=== PATIENT | female | born 1980 | race Caucasian/White ===

== ENCOUNTER 2020-03-21 15:07 | Outpatient (REF) | payer OTHER, SELFPAY ==
--- NOTE | 2020-03-21 | US_ITS ---
EXAMINATION: ULTRASOUND LOWER EXTREMITY NONVASCULAR CLINICAL INFORMATION: Right groin COMPARISON: None TECHNIQUE: Grayscale and color imaging of the right inguinal region using a linear transducer FINDINGS: There is a right inguinal lymph node that corresponds to palpable abnormality. This measures 2 x 3.2 x 0.7 cm in sagittal transverse and AP dimension and is borderline enlarged. This has normal ultrasound morphology and flow. No hernia is seen. IMPRESSION: Palpable abnormality corresponds to a right inguinal lymph node. No hernia is seen.
== END 2020-03-21 15:08 | disposition home or self-care (01) ==
LOC: HO.US 15:07
PROVIDERS: PCP Physician Assistant; Visit Provider Advanced Practice Midwife
DX: R19.03 Right lower quadrant abdominal swelling, mass and lump (principal)
CPT/HCPCS: 76882

== ENCOUNTER → 2020-04-18 10:22 | Outpatient (BNVA) | payer OTHER, SELFPAY | PROVIDERS: PCP Physician Assistant; Visit Provider Surgery | DX: Z76.89 Persons encountering health services in other specified circumstances (principal) ==

== ENCOUNTER 2021-03-11 14:50 | Outpatient (REF) | payer OTHER, SELFPAY ==
--- NOTE | ~2021-03-11 | MM_ITS ---
EXAMINATION: MM SCREENING DIGITAL BREAST TOMOSYNTHESIS, BILATERAL CLINICAL INFORMATION: Screening. Asymptomatic. The lifetime risk of breast cancer based on the Tyrer-Cuzick Model is 21.7%. Additional annual screening with breast MRI may be of benefit in women with a Score of 20% or greater. COMPARISON: Mammography: 06/06/2019 and studies dating back to 12/09/2016 TECHNIQUE: Digital breast tomosynthesis is performed in both the craniocaudal and mediolateral oblique views along with computer-aided detection (CAD). Synthesized 2-D images are generated from the tomosynthesis. FINDINGS: The breasts are heterogeneously dense, which may obscure small masses (ACR BI-RADS breast composition Category c). Bilateral axillary lymph nodes are seen to contain calcification likely related to tattoo pigment. No suspicious left breast mass density is identified. No suspicious left breast calcifications. About the upper outer aspect of the right breast, there is a cluster of rounded densities likely representing cysts approximately 7 cm from the nipple. There is also noted to be a circumscribed approximately 1 cm in diameter density approximately 5 cm from the nipple. Spot compression view and ultrasound is recommended for further evaluation. MM/MM tomosynthesis screening BI IMPRESSION: Right breast densities upper outer quadrant for which spot compression views and ultrasound are recommended. ASSESSMENT: BI-RADS 0: Incomplete - Need Additional Imaging Evaluation. RECOMMENDATION: 1. Additional views of the right breast. 2. Targeted ultrasound if warranted after review of the additional views. 3. Radiology department staff will contact the patient for additional imaging. This patient's information was entered into a reminder system with a target due date for their next mammogram.
== END 2021-03-11 14:51 | disposition home or self-care (01) ==
LOC: HO.MAMMO 14:50
PROVIDERS: PCP Physician Assistant; Visit Provider Physician Assistant
DX: Z12.31 Encounter for screening mammogram for malignant neoplasm of breast (principal)
CPT/HCPCS: 77063; 77067

== ENCOUNTER 2021-03-19 14:20 | Outpatient (REF) | payer OTHER, SELFPAY ==
--- NOTE | ~2021-03-19 | MM_ITS ---
EXAMINATION: MM DIAGNOSTIC DIGITAL BREAST TOMOSYNTHESIS, RIGHT US DIAGNOSTIC ULTRASOUND BREAST, RIGHT CLINICAL INFORMATION: Recall from screening for subtle nodular asymmetric densities upper outer right breast. Family history breast cancer, mother. TC score 22%. COMPARISON: Mammography: 03/11/2021, 06/06/2019 TECHNIQUE: Digital breast tomosynthesis is performed. 2D images are generated from the tomosynthesis. The following views are obtained: Spot CC x2, spot MLO Ultrasound right breast is targeted to the outer quadrants using grayscale imaging and color Doppler without and with harmonics. FINDINGS: The breasts are heterogeneously dense, which may obscure small masses (ACR BI-RADS breast composition Category c). The additional views confirm smooth oval mass mid 9:30 position approximately 1.2 cm in length with partly obscured margins. There is a smaller adjacent bilobed nodule with smooth partially obscured margins slightly more posterior at 9:00. There is no architectural abnormality. Ultrasound demonstrates oval simple cyst 10:00 position approximately 4 cm from nipple measuring 1.3 x 0.6 x 0.9 cm. The cyst is anechoic with circumscribed margins and increased through-transmission of sound. No associated color flow. There is a bilobed satellite cyst consistent with the mammography approximately 2.3 cm more posterior with overall dimensions 0.8 x 0.5 x 0.6 cm. There is no solid mass or architectural abnormality or focal duct ectasia. Results are discussed with the patient at time of visit. MM/MM tomosynthesis added views R IMPRESSION: Incidental simple cysts mid outer right breast corresponding to finding on recent mammography. ASSESSMENT: BI-RADS 2: Benign RECOMMENDATION: 1. Routine annual mammography screening. 2. The lifetime risk of breast cancer based on the Tyrer-Cuzick Model is 22%. Additional annual adjunct screening with breast MRI may be of benefit in women with a risk score of 20% or greater. This patient's information was entered into a reminder system with a target due date for their next mammogram.
== END 2021-03-19 14:21 | disposition home or self-care (01) ==
LOC: HO.MAMMO 14:20
PROVIDERS: Visit Provider Physician Assistant
DX: R92.2 Inconclusive mammogram (principal); Z80.3 Family history of malignant neoplasm of breast
CPT/HCPCS: 76642; 77061; 77065

== ENCOUNTER 2021-06-11 16:23 | Outpatient (REF) | payer OTHER, SELFPAY ==
[2021-06-11 17:06] LABS: COVID-19 Test Negative (Negative)
== END 2021-06-11 16:24 | disposition home or self-care (01) ==
LOC: HO.LAB 16:23
PROVIDERS: PCP Physician Assistant; Visit Provider Internal Medicine
DX: Z20.822 Contact with and (suspected) exposure to COVID-19 (principal)
CPT/HCPCS: 36415; 87635

== ENCOUNTER 2021-06-17 14:03 | Outpatient (REF) | payer OTHER, SELFPAY | END 2021-06-17 14:04 | disposition home or self-care (01) | LOC: HO.LNP 14:03 | PROVIDERS: Visit Provider Hospitalist | DX: Z20.822 Contact with and (suspected) exposure to COVID-19 (principal) | CPT/HCPCS: U0003; U0005 ==

== ENCOUNTER 2021-12-08 16:16 | Outpatient (REF) | payer OTHER, SELFPAY ==
--- NOTE | ~2021-12-08 | US_ITS ---
EXAMINATION: US ABDOMEN COMPLETE CLINICAL INFORMATION: Upper abdominal pain, unspecified. COMPARISON: None TECHNIQUE: Real-time imaging of the abdominal viscera. FINDINGS: PANCREAS: Normal. ABDOMINAL AORTA: The proximal, mid, and distal segments are normal in caliber. INFERIOR VENA CAVA: Visualized portions are normal. LIVER: Normal. The liver is normal in size. The liver contour is normal. Parenchymal echogenicity is normal. No focal hepatic lesion. There is no intrahepatic biliary duct dilatation seen. GALLBLADDER: Normal. The gallbladder is physiologically distended without evidence of stones, sludge, polyps, wall thickening or pericholecystic fluid. COMMON BILE DUCT: Normal in caliber measuring 0.2 cm in diameter. RIGHT KIDNEY: Normal. No hydronephrosis. No renal calculi or focal parenchymal lesions. The kidney measures 10.5 cm in maximum dimension. LEFT KIDNEY: There is a 1.2 x 0.8 x 1.6 cm simple cyst in the lower pole. No hydronephrosis or renal calculi. The kidney measures 10.7 cm in maximum dimension. SPLEEN: Normal. The spleen measures 8.2 cm in maximum dimension. FREE FLUID: None. US/US abdomen complete IMPRESSION: Small left renal cyst otherwise unremarkable exam.
== END 2021-12-08 16:17 | disposition home or self-care (01) ==
LOC: HO.US 16:16
PROVIDERS: PCP Internal Medicine; Visit Provider Internal Medicine
DX: R10.10 Upper abdominal pain, unspecified (principal)
CPT/HCPCS: 76700

== ENCOUNTER 2022-01-27 12:34 | Outpatient (REF) | payer OTHER, SELFPAY ==
--- NOTE | ~2022-01-27 | XR_ITS ---
EXAMINATION: XR THORACOLUMBAR SPINE CLINICAL INFORMATION: Upper abdominal pain. Back pain COMPARISON: None TECHNIQUE: 2 views. FINDINGS: The vertebral alignment is normal. No intrinsic bony abnormality. The disc heights and neural foramina are well maintained. The endplates and posterior elements are normal. No fracture or subluxation. The surrounding prevertebral soft tissues are unremarkable. XR/XR thoracic spine 2V IMPRESSION: No compression fractures or subluxations are identified. The disc spaces are preserved. No endplate changes are seen. The prevertebral soft tissues are normal. The foramina are patent.
[2022-01-27 13:59] LABS: Appearance Urine HAZY; Color Urine YELLOW; Glucose Urine UA NEG (NEG); Leukocyte Esterase Urine NEG (NEG); Nitrite Urine NEG (NEG); Specific Gravity - Urine 1.025 (1.005-1.025); Urine Blood NEG (NEG); Urine Ketones NEG (NEG); Urine Protein NEG (NEG-TRACE)
[2022-01-27 14:13] LABS: Amylase 54 U/L (28-100); C Reactive Protein 0.14 mg/dL (< or = 0.50); Lipase 52 U/L (8-78)
[2022-01-29 13:08] LABS: Transglutaminase Ab IgG <1.0 U/mL; Transglutaminase IgA <1.0 U/mL
== END 2022-01-27 12:35 | disposition home or self-care (01) ==
LOC: HO.10HDL 12:34
PROVIDERS: Visit Provider Nurse Practitioner
DX: R10.10 Upper abdominal pain, unspecified (principal); K58.0 Irritable bowel syndrome with diarrhea; M54.9 Dorsalgia, unspecified
CPT/HCPCS: 36415; 72070; 81003; 82150; 83690; 86003; 86140; 86364

== ENCOUNTER 2022-03-12 16:21 | Outpatient (REF) | payer OTHER, SELFPAY ==
--- NOTE | ~2022-03-12 | MM_ITS ---
EXAMINATION: MM SCREENING DIGITAL BREAST TOMOSYNTHESIS, BILATERAL CLINICAL INFORMATION: Screening. Asymptomatic. Family history breast cancer, mother. Left axillary node biopsy 2018 (tattoo pigment). The lifetime risk of breast cancer based on the Tyrer-Cuzick Model is 30%. COMPARISON: Mammography: 03/19/2021, 03/11/2021, 06/06/2019; right breast ultrasound 03/19/2021. TECHNIQUE: Digital breast tomosynthesis is performed in both the craniocaudal and mediolateral oblique views along with computer-aided detection (CAD). Synthesized 2D images are generated from the tomosynthesis. FINDINGS: There are scattered areas of fibroglandular density (ACR BI-RADS breast composition Category b). There are no significant masses, abnormal calcifications, or other abnormalities. Parenchymal pattern is similar to prior studies. There is no developing density or architectural abnormality. The skin contours are unremarkable. The axilla are stable. Punctate high attenuation holden densities likely related tattoo pigment. Biopsy clip marker left axilla. No significant changes. MM/MM tomosynthesis screening BI IMPRESSION: No mammographic evidence of malignancy. ASSESSMENT: BI-RADS 2: Benign RECOMMENDATION: Routine annual mammography screening. This patient's information was entered into a reminder system with a target due date for their next mammogram.
== END 2022-03-12 16:22 | disposition home or self-care (01) ==
LOC: HO.MAMMO 16:21
PROVIDERS: PCP Physician Assistant; Visit Provider Physician Assistant
DX: Z12.31 Encounter for screening mammogram for malignant neoplasm of breast (principal)
CPT/HCPCS: 77063; 77067

== ENCOUNTER 2022-06-18 07:58 | Outpatient (REF) | payer OTHER, SELFPAY ==
[2022-06-19 12:09] LABS: BV Int Neg Control Negative (Negative); BV Int Pos Control Positive (Positive)
[2022-06-20 03:04] LABS: HPV mRNA E6/E7 rflx Not Detected (Not Detected)
== END 2022-06-18 07:59 | disposition home or self-care (01) ==
LOC: HO.LNP 07:58
PROVIDERS: PCP Physician Assistant; Visit Provider Advanced Practice Midwife
DX: Z01.419 Encounter for gynecological examination (general) (routine) without abnormal findings (principal); N92.0 Excessive and frequent menstruation with regular cycle; F17.210 Nicotine dependence, cigarettes, uncomplicated
CPT/HCPCS: 87480; 87510; 87624; 87660; 88142

== ENCOUNTER 2022-06-18 09:07 | Outpatient (REF) | payer OTHER, SELFPAY ==
[2022-06-18 10:31] LABS: Hematocrit 39.2 % (37.0-47.0); Hemoglobin 13.1 g/dl (12.0-16.0); Mean Corpuscular HGB Conc 33.4 g/dl (31.0-35.0); Mean Corpuscular Hemoglobin 32.5 pg (27.0-33.0); Mean Corpuscular Volume 97.3 fL (80.0-98.0); Mean Platelet Volume 9.5 fL (9.4-12.3); Platelet Count 324 X10*3/uL (160-400); Red Blood Count 4.03 X10*6/uL (4.20-5.50); Red Cell Distribution Width 12.7 % (11.0-16.0); White Blood Count 4.4 X10*3/uL (4.8-10.8)
[2022-06-18 10:41] LABS: Alanine Aminotransferase 28 U/L (0-31); Albumin Level 4.4 g/dL (3.5-5.0); Alkaline Phosphatase 49 U/L (39-117); Anion Gap 11 (12-20); Aspartate Amino Transferase 30 U/L (5-31); Bilirubin Total 0.4 mg/dL (0.0-1.0); Blood Urea Nitrogen 12 mg/dL (9-16); Calcium 9.8 mg/dL (8.4-10.2); Carbon Dioxide 28 mmol/L (22-29); Chloride 103 mmol/L (96-108); Cholesterol 188 mg/dL; Estimated Glomerular Filt Rate > 60; Glucose Fasting 82 mg/dL (60-99); HDL Cholesterol 57 mg/dL; LDL Cholesterol Calculated 106 mg/dl; Potassium 4.8 mmol/L (3.3-5.1); Sodium 137 mmol/L (135-145); Total Protein 7.2 g/dL (6.5-8.0); Triglycerides 125 mg/dL
[2022-06-18 11:02] LABS: Creatinine Urine 100.22 mg/dL; Microalbum/Creatinine Ratio Ur 6.9 ug/mg cr
[2022-06-18 11:15] LABS: TSH reflex Free T4 0.75 uIU/mL (0.32-4.0); Uric Acid 4.5 mg/dL (2.4-5.7)
[2022-06-18 12:10] LABS: CT PCR NOT DETECTED (Not Detect.); NG PCR NOT DETECTED (Not Detect.)
== END 2022-06-18 09:08 | disposition home or self-care (01) ==
LOC: HO.10HDL 09:07
PROVIDERS: Advanced Practice Midwife; Nurse Practitioner; Visit Provider Physician Assistant
DX: N92.0 Excessive and frequent menstruation with regular cycle (principal); I10 Essential (primary) hypertension; Z11.3 Encounter for screening for infections with a predominantly sexual mode of transmission
CPT/HCPCS: 36415; 80053; 80061; 82043; 84443; 84550; 85027; 87491; 87591

== ENCOUNTER → 2022-06-30 08:02 | Outpatient (BNVA) | payer OTHER, SELFPAY | PROVIDERS: PCP Physician Assistant; Referring Provider Physician Assistant; Visit Provider Nurse Practitioner | DX: Z13.89 Encounter for screening for other disorder (principal) ==

== ENCOUNTER 2022-07-06 16:17 | Outpatient (REF) | payer OTHER, SELFPAY ==
--- NOTE | ~2022-07-06 | US_ITS ---
EXAMINATION: US PELVIS CLINICAL INFORMATION: Excessive and frequent menstruation. 42-year-old, LMP 06/18/2022 COMPARISON: 12/10/2016 TECHNIQUE: Ultrasound of the pelvis is performed using both transabdominal and transvaginal transducers along with Doppler. Transvaginal imaging is performed due to inadequate visualization transabdominally. FINDINGS: Uterus: The uterus is anteverted and measures 2.8 x 3.0 x 1.5 cm. The double wall endometrial thickness is 1.1 mm. The uterus is smooth in contour and has normal myometrial echogenicity. No visible fibroid. Adnexa: Both ovaries are visualized. There is normal color flow to the adnexa. There is no ovarian torsion. There is no pelvic ascites or fluid collection. Right ovary measures 2.8 x 3.0 x 1.5 cm. Left ovary measures 3.0 x 2.0 x 1.4 cm. US/US pelvic and transvaginal IMPRESSION: Unremarkable pelvic ultrasound.
== END 2022-07-06 16:18 | disposition home or self-care (01) ==
LOC: HO.US 16:17
PROVIDERS: PCP Physician Assistant; Visit Provider Advanced Practice Midwife
DX: N92.0 Excessive and frequent menstruation with regular cycle (principal)
CPT/HCPCS: 76830; 76856

== ENCOUNTER → 2022-07-20 11:43 | Outpatient (BNVA) | payer OTHER, SELFPAY | PROVIDERS: PCP Physician Assistant; Visit Provider Advanced Practice Midwife | DX: Z13.89 Encounter for screening for other disorder (principal) ==

== ENCOUNTER → 2022-09-29 07:42 | Outpatient (BNVA) | payer OTHER, SELFPAY | PROVIDERS: PCP Physician Assistant; Referring Provider Physician Assistant; Visit Provider Nurse Practitioner | DX: Z13.89 Encounter for screening for other disorder (principal) ==

== ENCOUNTER 2022-12-16 16:24 | Outpatient (REF) | payer OTHER, SELFPAY ==
--- NOTE | ~2022-12-16 | XR_ITS ---
EXAMINATION: XR FOOT, RIGHT CLINICAL INFORMATION: Pain. COMPARISON: Radiographs dated 12/11/2019. TECHNIQUE: AP, lateral, and oblique views of the right foot. FINDINGS: Bony alignment and mineralization are normal. No fracture, dislocation or right ankle joint effusion is seen. Boehler's angle is normal. There are moderate posterior and large plantar calcaneal spurs. No unusual bone erosion is noted. There is no focal soft tissue swelling, gas or foreign body. XR/XR foot RT min 3V IMPRESSION: 1. No fracture, dislocation or right ankle joint effusion is seen. 2. There are right calcaneal spurs, as detailed. EXAMINATION: XR FOOT, LEFT CLINICAL INFORMATION: Pain. COMPARISON: None available. TECHNIQUE: AP, lateral, and oblique views of the left foot. FINDINGS: Bony alignment and mineralization are normal. No fracture, dislocation or left ankle joint effusion is seen. Boehler's angle is normal. There is a small plantar calcaneal spur. No unusual bony erosive change is seen. There is no focal soft tissue swelling, gas or foreign body. IMPRESSION: 1. No fracture, dislocation or left ankle joint effusion is seen. 2. There is a small plantar calcaneal spur.
--- NOTE | ~2022-12-16 | XR_ITS ---
EXAMINATION: XR FOOT, RIGHT CLINICAL INFORMATION: Pain. COMPARISON: Radiographs dated 12/11/2019. TECHNIQUE: AP, lateral, and oblique views of the right foot. FINDINGS: Bony alignment and mineralization are normal. No fracture, dislocation or right ankle joint effusion is seen. Boehler's angle is normal. There are moderate posterior and large plantar calcaneal spurs. No unusual bone erosion is noted. There is no focal soft tissue swelling, gas or foreign body. XR/XR foot LT min 3V IMPRESSION: 1. No fracture, dislocation or right ankle joint effusion is seen. 2. There are right calcaneal spurs, as detailed. EXAMINATION: XR FOOT, LEFT CLINICAL INFORMATION: Pain. COMPARISON: None available. TECHNIQUE: AP, lateral, and oblique views of the left foot. FINDINGS: Bony alignment and mineralization are normal. No fracture, dislocation or left ankle joint effusion is seen. Boehler's angle is normal. There is a small plantar calcaneal spur. No unusual bony erosive change is seen. There is no focal soft tissue swelling, gas or foreign body. IMPRESSION: 1. No fracture, dislocation or left ankle joint effusion is seen. 2. There is a small plantar calcaneal spur.
== END 2022-12-16 16:25 | disposition home or self-care (01) ==
LOC: HO.XRAY 16:24
PROVIDERS: PCP Physician Assistant; Visit Provider Podiatrist
DX: M79.672 Pain in left foot (principal); M79.671 Pain in right foot
CPT/HCPCS: 73630

== ENCOUNTER 2023-03-02 13:24 | Outpatient (AMB) | payer OTHER, SELFPAY ==
--- NOTE | 2023-03-02 13:26 | A.OFFVIS_ITS ---
Intake Vital Signs 03/02/23 13:31 Height 5 ft 2 in Weight 160 lb BMI 29.3 Intake Visit Reasons: New Prob - Bilateral Knee Pain Intake Note: Kizzy a 42 year old female who presents today for an evaluation of bilateral knee pains and giving way, left greater than right. The patient states that she 1st injured her left knee several years ago. She twisted her knee and had acute onset of pain. She did have cortisone injections at that time which gave her minimal relief. She has done physical therapy for 12 weeks over the last 6 months which aggravated her pain. She has also tried Tylenol and anti- inflammatory medicines which gave her minimal relief. She states that her left knee will give out several times per day. Allergies cat dander Allergy (Verified 03/02/23 13:31) Unknown seasonal Allergy (Unknown, Uncoded 03/02/23 13:31) Unknown Medication List - Last Reconciled 03/02/23 by Don Deutsch MD cetirizine (Zyrtec) 10 mg PO DAILY citalopram 10 mg PO DAILY eluxadoline (Viberzi) 100 mg PO BID 90 days L.acid,gas,tasha,rham-B.ani-cran 5 billion cell- 250 mg (up4 Probiotics Women's) caps PO lisinopril 10 mg PO DAILY pantoprazole 20 mg PO DAILY [facility] Medical History Hypertension Surgical History History of laparoscopy Family History Mother History of leukemia History of basal cell carcinoma History of breast cancer, Onset Age: 58 Maternal Grandmother History of pancreatic cancer Maternal Grandmother History of breast cancer Father TIA (transient ischemic attack), Onset Age: 50 CAD (coronary artery disease) Social History Housing: House Alcohol intake: current Alcohol intake frequency: a few times a week Alcohol type: wine Patient Tobacco Use Status: Current someday Tobacco user Cigarettes Per Day: 5 e-Cigarette/Vaping Use: Never Used Second Hand Smoke Exposure: Yes service: No Current occupational status: employed 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[employer] Cognitive needs: No Hearing needs: No Vision needs: No Female Reproductive History Menstrual Age of Menarche: 11 Physical Exam Vital Signs: BMI result Body Mass Index 29.3 Const Other: Well-nourished well-developed very friendly female awake alert and oriented x3 in no acute distress Extrem Other: Bilateral lower extremity examination shows good capillary refill, no skin lesions noted, normal sensation light touch Bilateral knee examination shows minimal effusions, tenderness along her medial joint lines, positive Feroz's test, no instability Results Reviewed Results Reviewed: X-rays of the patient's bilateral knees taken today show minimal diffuse joint space narrowing, no acute bony abnormalities Assessment & Plan Assessment & Plan (1) Left knee pain: Code(s): M25.562 - Pain in left knee Plan: Ms. Roge Kraus presents with progressively worsening left knee pain and giving way most likely due to a tear of her medial meniscus. Thus, I will send her for an MRI of her left knee for further evaluation. I will see her back once the MRI is completed to discuss the findings and treatment options. The patient also has similar symptoms in her right knee. At this point her right knee symptoms are tolerable to her. Feel free to call me at any time should questions regarding her orthopedic management arise. I spent 22 minutes in reviewing the patient's records and imaging studies, seeing the patient and documenting in the medical record. (2) Right knee pain: Code(s): M25.561 - Pain in right knee Orders: Orders XR knee LT 3V Today M25.562 - Pain in left knee XR knee RT 3V Today M25.561 - Pain in right knee MR knee LT wo con Today S83.242A - Other tear of medial meniscus, current injury, left knee, initial encounter Coding Level of Care Code Est Pt Level 2 (81748) Diagnoses Left knee pain M25.562 Right knee pain M25.561
[2023-03-02 13:31] VITALS: BMI 29.3
== END 2023-03-02 13:52 | disposition home or self-care (01) ==
PROVIDERS: PCP Physician Assistant; Visit Provider Orthopaedic Surgery
DX: M25.562 Pain in left knee (principal); M25.561 Pain in right knee
CPT/HCPCS: 99212

== ENCOUNTER 2023-03-02 13:24 | Outpatient (REF) | payer OTHER, SELFPAY ==
--- NOTE | ~2023-03-02 | XR_ITS ---
STUDY: Bilateral knees INDICATION: Bilateral knee pain COMPARISON: None TECHNIQUE: 4 views each knee FINDINGS: Right: No fracture or dislocation. No significant joint space narrowings. Small suprapatellar effusion. Quadriceps enthesopathy. Left: Joint spaces are maintained. No fracture, dislocation or joint effusion. XR/XR knee RT 3V IMPRESSION: No acute bony pathology bilateral knees. Small right suprapatellar effusion.
--- NOTE | ~2023-03-02 | XR_ITS ---
STUDY: Bilateral knees INDICATION: Bilateral knee pain COMPARISON: None TECHNIQUE: 4 views each knee FINDINGS: Right: No fracture or dislocation. No significant joint space narrowings. Small suprapatellar effusion. Quadriceps enthesopathy. Left: Joint spaces are maintained. No fracture, dislocation or joint effusion. XR/XR knee LT 3V IMPRESSION: No acute bony pathology bilateral knees. Small right suprapatellar effusion.
== END 2023-03-02 13:25 | disposition home or self-care (01) ==
LOC: HO.HOSX 13:24
PROVIDERS: PCP Physician Assistant; Visit Provider Orthopaedic Surgery
DX: M25.561 Pain in right knee (principal); M25.562 Pain in left knee
CPT/HCPCS: 73562

== ENCOUNTER 2023-03-19 09:44 | Outpatient (REF) | payer OTHER, SELFPAY ==
--- NOTE | ~2023-03-19 | MR_ITS ---
EXAMINATION: MR KNEE WITHOUT CONTRAST, LEFT CLINICAL INFORMATION: Left knee pain. Evaluate for a meniscal tear. COMPARISON: Left knee radiographs dated 03/02/2023. TECHNIQUE: MRI of the knee without contrast was performed using routine sequences on a high-field scanner. FINDINGS: MENISCI: Medial Meniscus: Intact Lateral Meniscus: Intact LIGAMENTS: Cruciate: Intact Collateral: Mild edema along the periphery of the medial collateral ligament consistent with an acute grade 1 sprain. No measurable defect. Intact fibular collateral ligament. EXTENSOR MECHANISM: Superior patellar enthesophytes with mild distal quadriceps tendinosis. Intact patellar tendon. Normal patellofemoral alignment. ARTICULAR CARTILAGE/BONE: Patellofemoral Compartment: Inferior medial trochlea articular cartilage signal heterogeneity. Medial Compartment: Intact articular cartilage. Lateral Compartment: Intact articular cartilage. JOINT FLUID AND BURSAE: Trace joint effusion and trace Perez's cyst. MR/MR knee LT wo con IMPRESSION: Acute grade 1 sprain of the medial collateral ligament. No meniscal tear. Mild distal quadriceps tendinosis. Minimal patellofemoral arthrosis. Trace joint effusion and trace Perez's cyst.
== END 2023-03-19 09:45 | disposition home or self-care (01) ==
LOC: HO.MRI 09:44
PROVIDERS: PCP Physician Assistant; Visit Provider Orthopaedic Surgery
DX: S83.242A Other tear of medial meniscus, current injury, left knee, initial encounter (principal)
CPT/HCPCS: 73721

== ENCOUNTER → 2023-03-29 08:30 | Outpatient (BNV) | payer OTHER, SELFPAY | PROVIDERS: PCP Physician Assistant; Visit Provider Radiology Diagnostic Radiology | DX: Z12.31 Encounter for screening mammogram for malignant neoplasm of breast (principal) | CPT/HCPCS: 77063; 77067 ==

== ENCOUNTER 2023-03-29 08:35 | Outpatient (REF) | payer OTHER, SELFPAY | END 2023-03-29 08:36 | disposition home or self-care (01) | LOC: HO.MAMMO 08:35 | PROVIDERS: PCP Physician Assistant; Visit Provider Physician Assistant | DX: Z12.31 Encounter for screening mammogram for malignant neoplasm of breast (principal) | CPT/HCPCS: 77063; 77067 ==

== ENCOUNTER 2023-03-31 08:03 | Outpatient (AMB) | payer OTHER, SELFPAY ==
--- NOTE | 2023-03-31 08:03 | MHC.OFFVIS ---
Intake Vital Signs 03/31/23 08:04 Height 5 ft 2 in Weight 150 lb BMI 27.4 Intake Visit Reasons: OV - Left Knee MRI Follow Up - Brace Intake Note: Kizzy is a 42 year old female who presents today for an MRI review of her bilateral knees. Kizzy reports bilateral knee pains and giving way, left greater than right. The patient states that she 1st injured her left knee several years ago. She twisted her knee and had acute onset of pain. She did have cortisone injections at that time which gave her minimal relief. She has done physical therapy for 12 weeks over the last 6 months which aggravated her pain. She has also tried Tylenol and anti-inflammatory medicines which gave her minimal relief. She states that her left knee will give out several times per day. She would like to avoid surgery if possible. He has not tried a knee brace. Allergies cat dander Allergy (Verified 03/31/23 08:05) Unknown seasonal Allergy (Unknown, Uncoded 03/31/23 08:05) Unknown [facility] Medical History Hypertension Surgical History History of laparoscopy Family History Mother History of leukemia History of basal cell carcinoma History of breast cancer, Onset Age: 58 Maternal Grandmother History of pancreatic cancer Maternal Grandmother History of breast cancer Father TIA (transient ischemic attack), Onset Age: 50 CAD (coronary artery disease) Social History Housing: House Alcohol intake: current Alcohol intake frequency: a few times a week Alcohol type: wine Patient Tobacco Use Status: Current someday Tobacco user Cigarettes Per Day: 5 e-Cigarette/Vaping Use: Never Used Second Hand Smoke Exposure: Yes service: No Current occupational status: employed 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[employer] Cognitive needs: No Hearing needs: No Vision needs: No Female Reproductive History Menstrual Age of Menarche: 11 Physical Exam Vital Signs: BMI result Body Mass Index 27.4 Const Other: Well-nourished well-developed very friendly female awake alert and oriented x3 in no acute distress Extrem Other: Bilateral lower extremity examination shows good capillary refill, no skin lesions noted, normal sensation light touch Left knee examination shows a minimal effusion, tenderness along her medial collateral ligament and medial joint line, negative Feroz's test, no instability Results Reviewed Results Reviewed: MRI of the patient's left knee shows minimal diffuse degenerative changes as well as a sprain of the medial collateral ligament Assessment & Plan Assessment & Plan (1) MCL sprain of left knee: Code(s): S83.412A - Sprain of medial collateral ligament of left knee, initial encounter Plan Ms. Guan presents with left knee pain and mechanical symptoms due to a medial collateral ligament sprain. I discussed with the patient the treatment options. The patient's symptoms will most likely improve over the next few months with non operative treatment. She was fitted with a Reaction knee brace to help with stability. I do feel that the knee brace is a medical necessity to help prevent further injury and falls. The patient will contact me prior to her follow-up appointment in 6 weeks should her symptoms worsen in any way. Feel free to call me at any time should questions regarding her orthopedic management arise. I spent 20 minutes in reviewing the patient's records and imaging studies, seeing the patient and documenting in the medical record. Coding Level of Care Code Est Pt Level 2 (11620) Diagnoses MCL sprain of left knee S83.412A
[2023-03-31 08:04] VITALS: BMI 27.4
== END 2023-03-31 08:07 | disposition home or self-care (01) ==
PROVIDERS: PCP Physician Assistant; Visit Provider Orthopaedic Surgery
DX: S83.412A Sprain of medial collateral ligament of left knee, initial encounter (principal)
CPT/HCPCS: 99212

== ENCOUNTER → 2023-03-31 08:03 | Outpatient (BNVA) | payer OTHER, SELFPAY | PROVIDERS: PCP Physician Assistant; Visit Provider Orthopaedic Surgery ==

== ENCOUNTER 2023-04-01 12:59 | Outpatient (AMB) | payer OTHER, SELFPAY ==
--- NOTE | 2023-04-01 13:00 | A.OFFVIS_ITS ---
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 VV are painful to the touch. Accompanied by: Self / Same As Patient Allergies cat dander Allergy (Verified 04/01/23 13:04) Unknown seasonal Allergy (Unknown, Uncoded 04/01/23 13:04) Unknown HPI CLIENT OPERATIONS MANAGER Varicose Veins HPI Details Very pleasant 43-year-old female patient presents for painful varicose veins. Complaints include pain over varicosities, swelling of lower extremities, cramping. 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 It is noted more so in left leg. Patient denies any previous venous surgery or injections. Patient denies any history of DVT/ PE. Patient denies any history of phlebitis. Trial of compression includes - [id number] They now present for vascular evaluation regarding their varicose veins. [facility] Medical History Hypertension Surgical History History of laparoscopy Family History Mother History of leukemia History of basal cell carcinoma History of breast cancer, Onset Age: 58 Maternal Grandmother History of pancreatic cancer Maternal Grandmother History of breast cancer Father TIA (transient ischemic attack), Onset Age: 50 CAD (coronary artery disease) Social History Housing: House Alcohol intake: current Alcohol intake frequency: a few times a week Alcohol type: wine Patient Tobacco Use Status: Current someday Tobacco user Cigarettes Per Day: 5 e-Cigarette/Vaping Use: Never Used Second Hand Smoke Exposure: Yes service: No Current occupational status: employed 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[employer] Cognitive needs: No Hearing needs: No Vision needs: No Female Reproductive History Menstrual Age of Menarche: 11 Review of Systems Const Reports as per HPI ENT Reports no additional complaints Card Denies chest pain, Denies chest pain at rest and Denies chest pain with activity Resp Denies chest congestion and Denies cough GI Reports no additional complaints Musc Details: pain over varicosities, aching of lower extremities, swelling, cramping, heaviness and tiredness, itching Denies abnormal gait Skin/Breast Reports pruritus and Denies wounds Neuro Reports no additional complaints and Denies abnormal gait Psych Denies no additional complaints Physical Exam Vital Signs: BMI result Body Mass Index 27.4 Const General: cooperative, healthy appearing and comfortable Orientation/consciousness: oriented to person, oriented to place and oriented to time Neck Carotids: no bruits Chest Chest palpation & inspection: normal inspection of the chest and normal palpation of entire chest wall Resp Effort & Inspection: normal respiratory effort and able to speak in complete sentences Cardio Rate: regular rate Heart sounds: S1 normal heart sound present and S2 normal heart sound present Peripheral pulses: Peripheral pulses 2+ throughout GI Inspection: Yes normal to inspection Skin Other: +2 edema, CEAP Classification C4 - skin color changes Ep - Etiology Primary As - superficial veins P - reflux General skin exam: dry skin Neuro General: oriented to person, oriented to place and oriented to time Extrem Right lower extremity: full ROM, normal capillary refill and edema Left lower extremity: full ROM, normal capillary refill and edema Psych Mental Status: mental status grossly normal Assessment & Plan Assessment & Plan (1) Varicose veins of left lower extremity with inflammation: Code(s): I83.12 - Varicose veins of left lower extremity with inflammation Plan: In short, the patient has evidence of venous insufficiency. I have discussed the pathophysiology with the patient. In addition I have provided informational material regarding venous disease to the patient. We have discussed conservative measures including compression, elevation, and exercise. I have also provided a handout regarding appropriate use of compression stockings and where to purchase good compression stockings as well. I have taken the liberty of ordering venous insufficiency testing with the patient. They will follow up with me after testing. The patient had an opportunity to ask questions regarding the treatment plan. All questions were answered. Imaging studies, laboratory studies and physical exam results were discussed and reviewed in detail. No major barriers to understanding were identified. The patient expressed understanding and agreement with the above treatment plan. The patient is aware they should contact our office by phone for worsening of the current condition or the appearance of new symptoms. Thank you for allowing me to participate in the vascular care of this patient. If you have any questions or concerns regarding the treatment for the above condition please do not hesitate to contact me. The office telephone contact is [phone]. This note is constructed using voice recognition software. While every effort has been made to ensure accuracy, supervisor decorating errors may have been included. Thank you for allowing me to participate in the care of your patient. Yours sincerely, Pancho Joiner MD, FACS, R.P.V.I. Coding Level of Care Code New Pt Level 4 (42817) Diagnoses Varicose veins of left lower extremity with inflammation I83.12
[2023-04-01 13:01] VITALS: BMI 27.4
== END 2023-04-01 13:23 | disposition home or self-care (01) ==
PROVIDERS: PCP Physician Assistant; Visit Provider Surgery Vascular Surgery
DX: I83.12 Varicose veins of left lower extremity with inflammation (principal)
CPT/HCPCS: 99203

== ENCOUNTER → 2023-04-01 12:59 | Outpatient (BNVA) | payer OTHER, SELFPAY | PROVIDERS: PCP Physician Assistant; Visit Provider Surgery Vascular Surgery ==

== ENCOUNTER 2023-04-15 08:23 | Outpatient (AMB) | payer OTHER, SELFPAY ==
[2023-04-15 08:36] VITALS: BP 114/72; PULSE 54; O2SAT 98; BMI 28.3
--- NOTE | 2023-04-15 08:36 | MHC.PC.OV ---
Vital Signs 04/15/23 08:36 Height 5 ft 2 in Weight 155 lb BMI 28.3 BP 114/72 Blood Pressure Location Lt brachial Position Sitting Pulse 54 Pulse Source Pulse Oximeter Pulse Oximetry (%) 98 Oxygen Delivery Method Room Air Intake Visit Reasons: PE Allergies cat dander Allergy (Verified 04/15/23 08:45) Unknown seasonal Allergy (Unknown, Uncoded 04/15/23 08:37) Unknown Medication List - Last Reconciled 04/15/23 by Yariel Rose PA-C cetirizine (Zyrtec) 10 mg PO DAILY citalopram 10 mg PO DAILY eluxadoline (Viberzi) 100 mg PO BID 90 days L.acid,gas,tasha,rham-B.ani-cran 5 billion cell- 250 mg (up4 Probiotics Women's) caps PO lisinopril 10 mg PO DAILY pantoprazole 20 mg PO DAILY Tobacco use date assessed: 04/15/23 Dental Screening Dental Screen Date: 04/15/23 Did you have a dental visit in the last 12 months?: Yes Did you have a dental problem in the last 6 months where you did not have access to dental care?: No Was dental information given to patient?: Patient has dentist HPI PE HPI Details ?Kizzy is a 43 year-old female here today for a PE visit. Patient has a past medical history significant for essential hypertension, chronic migraines, anxiety. Concern--> has developed symptomatic varicose veins over lower extremities. Now seeing a vascular surgeon and is considering vein ablation. ? .. ? Hypertension:? Patient continues on lisinopril 10 mg with good effect.? Denies any side effects to the medication.? Denies any chest discomfort, palpitations, shortness of breath. .. Herbal bowel syndrome/ GERD: Her GI symptoms have been much improved since she has returned back to the gym. ? . ? Anxiety: Has been controlled on Celexa 10mg. ? .. ? Smoker: She does understand she needs to quit smoking. She is not interested in quitting at this time. Has been offered nicotine patches in the past. ? .. ? Chronic migraines: Patient is followed by neurologist ( Dr. Fernandes) to which she receives Botox injections annually. ? .. ? Mammogram : . Did have calfication in LN -- Has Fmhx of breast cancer. ? .. ? Vaccine: UTD with Flu, UTD with COVID, UTD with Tdap , Needs? PCV ? .. ? 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 Has not got any recent Pap and will call for annual physical. [facility] Medical History (Updated 04/15/23 @ 09:43 by Yariel Rose PA-C) MCL sprain of left knee Tear of medial meniscus of left knee Enlarged lymph node Hypertension Surgical History History of laparoscopy Family History Mother History of leukemia History of basal cell carcinoma History of breast cancer, Onset Age: 58 Maternal Grandmother History of pancreatic cancer Maternal Grandmother History of breast cancer Father TIA (transient ischemic attack), Onset Age: 50 CAD (coronary artery disease) Social History Housing: House Alcohol intake: current Alcohol intake frequency: a few times a week Alcohol type: wine Patient Tobacco Use Status: Current someday Tobacco user Tobacco use type: Cigarette Cigarettes Per Day: 5 e-Cigarette/Vaping Use: Never Used Second Hand Smoke Exposure: Yes service: No Current occupational status: employed 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 1. Little interest or pleasure in doing things: not at all 2. Feeling down, depressed, or hopeless: not at all 3. Trouble falling or staying asleep, or sleeping too much: not at all 4. Feeling tired or having little energy: not at all 5. Poor appetite or overeating: not at all 6. Feeling bad about yourself - or that you are a failure or have let yourself or your family down: not at all 7. Trouble concentrating on things, such as reading the newspaper or watching television: not at all 8. Moving or speaking so slowly that other people could have noticed. Or the opposite - being so fidgety or restless that you have been moving around a lot more than usual: not at all 9. Thoughts that you would be better off or of hurting yourself in some way: not at all Total score: 0 Depression Screening Interpretation: Negative Depression Screening Done: Yes 51678 - PHQ-9 Billing: Yes Source: Developed by Drs. Gil Do, Renée Mullen, Thiago Woods and colleagues, with an educational uri from [employer] Thrive Questionnaire Date Thrive assessed: 04/15/23 I am a: Patient What is your living situation today?: I have a steady place to live Within the past 12 months, did the food you bought not last and you didn't have the money to get more?: Never true Within the past 12 months, did you worry whether your food would run out before you got money to buy more?: Never true Do you have trouble paying for medicines?: No Do you have trouble getting transportation to medical appointments?: No Do you have trouble paying your heating and electricity bill?: No Do you have trouble taking care of your child, family member or friend?: No Do you have trouble with day-to-day activities such as bathing, preparing meals, shopping, managing finances, etc.?: No Are you currently unemployed and looking for a job?: No Are you interested in more education?: No Currently or been in a relationship where the following occur: no concerns reported AUDIT C Alcohol Use Questionnaire (AUDIT-C) 1. How often do you have a drink containing alcohol?: 2-3 times a week 2. How many drinks containing alcohol do you have on a typical day when you are drinking?: 1 or 2 3. How often do you have six or more drinks on one occasion?: Never Total Score: 3 Score Reviewed/Action Taken: Yes (Advised to cut down drinking) PEMA-7 AMB Questionnaire PEMA-7 Date PEMA - 7 assessed: 04/15/23 Feeling nervous, anxious, or on edge: 1 = Several days Not being able to stop or control worryin = Not at all Worrying too much about different things: 0 = Not at all Trouble relaxin = Not at all Being so restless that it is hard to sit still: 0 = Not at all Becoming easily annoyed or irritable: 0 = Not at all Feeling afraid as if something awful might happen: 0 = Not at all Total PEMA-7 score (0-4 normal; 5-9 mild; 10-14 moderate; 15-21 severe): 1 Source: Developed by Drs. Gil Do, Renée Mullen, Thiago Woods and colleagues, with an educational uri from [employer]. PEMA-7 Assessment Billing PEMA-7 Assessment Tool: PEMA-7 Assessment 76033 Review of Systems Const Denies body aches, Denies chills, Denies excessive sweating, Denies fatigue, Denies fever(s) and Denies headache(s) Eyes Denies blurry vision ENT Denies dysphagia, Denies vertigo, Denies dizziness, Denies headache(s), Denies hearing loss and Denies tinnitus Card Denies chest pain, Denies chest pain with activity, Denies syncope, Denies irregular heart rhythm and Denies dyspnea Resp Denies chest congestion, Denies cough, Denies hemoptysis, Denies dyspnea and Denies wheezing GI Denies abdominal pain, Denies melena, Denies hematochezia, Denies coffee ground emesis, Denies dysphagia, Denies diarrhea, Denies nausea and Denies vomiting Denies urinary frequency, Denies dysuria, Denies urinary hesitancy and Denies urinary urgency Musc Denies arthralgias, Denies limited range of motion, Denies muscle cramps and Denies muscle weakness Skin/Breast Denies rash and Denies skin ulcer Neuro Denies Abnormal speech present, Denies confusion, Denies vertigo, Denies dizziness, Denies syncope, Denies headache(s), Denies memory loss and Denies seizure-like activity Psych Denies anxiety, Denies confusion, Denies depression, Denies memory loss, Denies panic attacks and Denies paranoia Endo Denies excessive sweating, Denies fatigue, Denies flushing, Denies polydipsia and Denies polyuria Aller/Immun Denies wheezing Physical exam (Primary Care) Vital Signs: Last Vital Signs Pulse 54 04/15/23 08:36 BP 114/72 04/15/23 08:36 Pulse Ox 98 04/15/23 08:36 Oxygen Delivery Method Room Air 04/15/23 08:36 BMI result Body Mass Index 28.3 Tobacco/Smoking Status: Tobacco use Status Tobacco use date assessed 04/15/23 04/15/23 08:38 Patient Tobacco Use Status Current someday Tobacco 04/15/23 08:38 Tobacco use type Cigarette 04/15/23 08:38 e-Cigarette/Vaping Use Never Used 04/15/23 08:38 Tobacco cessation counseling provided: Yes Items discussed: Nicotine replacement Relapse Prevention: discussed the importance of a supportive environment, discussed negative mood or depression after quitting, weight gain after smoking is common and discussed dietary, exercise and/or lifestyle changes Number of minutes spent counselin CPT code: 70362 - 4-10 Minutes PHQ-9: PHQ-9 Score PHQ-9: Total score 0 04/15/23 08:46 Depression Screening Interpretation: Negative Thrive Assessment: Date of Thrive Assessment Date Thrive assessed 04/15/23 04/15/23 08:38 Currently or been in a relationship where the following occur: no concerns reported Const General: cooperative, comfortable, no acute distress, alert and awake; No confusion Orientation/consciousness: oriented to person, oriented to place, patient oriented x3 and No confusion HENMT Head: Yes normocephalic Ears: external ears normal and TM's normal bilaterally Face and sinus: No sinus tenderness Mouth: Normal oral and palatal mucosa present and tongue normal Teeth and gingiva: dentition normal and gingiva normal Throat: Yes posterior oropharynx normal, Yes tonsils normal and Yes uvula midline Eyes Conjunctivae: conjunctivae normal Sclerae: sclerae normal Pupils: Equal, round and reactive pupils present EOM: EOMs intact bilaterally Direct Ophthalmoscopy: No no photophobia Neck Neck: Yes no lymphadenopathy, No tender and Yes no JVD Thyroid: Thyroid normal Carotids: no bruits Chest Chest palpation & inspection: no tenderness Resp Effort & Inspection: normal respiratory effort, no audible wheezes, not labored and no stridor Auscultation: no crackles, no rales, no rhonchi and no wheezes Cardio Jugular venous distension: no JVD Rate: regular rate, not bradycardic and not tachycardic Rhythm: regular rhythm Bruits: no carotid bruits Peripheral pulses: Peripheral pulses 2+ throughout GI Inspection: Yes normal to inspection, No abdominal wall ecchymosis and No visible herniation Palpation (GI): Soft to palpation, nontender, no guarding, not rigid and No hepatosplenomegaly present Auscultation: normoactive bowel sounds General: Yes no CVA tenderness Back/Spine/Pelvis Back: no CVA tenderness and No back tenderness Cervical Spine: cervical ROM normal Thoracic/Lumbar Spine: thoracic and lumbar spine normal to inspection, straight leg raise negative bilaterally, No thoraco-lumbar ROM limited and No lumbar spinal tenderness Skin Lesions: no lesions Rashes: no rashes Wounds: no wounds Neuro General: oriented to person, oriented to place, patient oriented x3, CN's II-XI intact bilaterally and No confusion Cranial nerves: Yes Equal, round and reactive pupils present and Yes Normal accommodation reflex present Cognition (Neuro): normal cognition Speech: No Abnormal speech present Gait exam (Neuro): Normal gait present Motor exam (neuro): 5/5 motor strength present throughout Extrem Right upper extremity: full ROM; no cyanosis Left upper extremity: full ROM; no cyanosis Right lower extremity: no edema Left lower extremity: no edema Psych Appearance: grossly normal Mental Status: mental status grossly normal Affect: normal affect Attitude: cooperative Thought process: Normal thought process present Immunizations pneumoc 20-nia conj-dip cr(PF) 0.5 mL IM syringe Performing Provider: Yariel Rose PA-C Performing Location: [facility] Administered by: Xin Vela CMA on 04/15/23 09:01 Dose Route Admin Location Dispensed Lot Number Expiration Date NDC Meal Grinder Tender 0.5 mL IM Left Deltoid 0.5 mL [id number] 12/20/23 PATHEOS/SVAS [employer] VIS Given Date VIS Provided VIS Publication Date 04/15/23 Single Vaccine 21 Eligibility Eligibility Date Funding Source Not [facility] Eligible 04/15/23 Private Assessment and Plan Assessment & Plan (1) Annual physical exam: Code(s): Z00.00 - Encounter for general adult medical examination without abnormal findings (2) Anxiety: Code(s): F41.9 - Anxiety disorder, unspecified Plan: Her anxiety is fairly well controlled with current dose of citalopram. (3) HTN (hypertension): Code(s): I10 - Essential (primary) hypertension Qualifiers: Hypertension type: primary hypertension Qualified Code(s): I10 - Essential (primary) hypertension Plan: Blood pressure acceptable today in office. Will continue her current dose of lisinopril with goal blood pressure to be below 140/90 (4) Smoker: Code(s): F17.200 - Nicotine dependence, unspecified, uncomplicated Plan: Patient does understand she needs to quit smoking. Not interested in quitting at this time. Offered nicotine patches though declines at this time. (5) Varicose veins of left lower extremity with inflammation: Code(s): I83.12 - Varicose veins of left lower extremity with inflammation Plan: Not followed by vascular surgeon. Is considering vein ablation. (6) Irritable bowel syndrome with diarrhea: Code(s): K58.0 - Irritable bowel syndrome with diarrhea Plan: Patient's IBS has been much improved since being more physically active at the gym. Orders: Orders Pneumococcal 20 Immunization Today Z23 - Encounter for immunization Comprehensive [place]. Panel Fast Today I10 - Essential (primary) hypertension Microalbumin, Random (w Creat) Today I10 - Essential (primary) hypertension Medications: Refilled lisinopril 10 mg PO DAILY 90 tabs 3RF citalopram 10 mg PO DAILY 90 tabs 1RF F41.9 - Anxiety disorder, unspecified Coding Level of Care Code Est Pt Prev Care 40-64y(76497) Diagnoses Annual physical exam Z00.00 Anxiety F41.9 Primary hypertension I10 Hypertension type: primary hypertension Smoker F17.200 Varicose veins of left lower extremity with inflammation I83.12 Irritable bowel syndrome with diarrhea K58.0 Additional Codes PEMA-7 Assessment Billing - PEMA-7 Assessment Tool: PEMA-7 Assessment 09959 ([id number]) Vital Signs *Quality* - CPT code: 59167 - 4-10 Minutes ([id number])
== END 2023-04-15 09:04 | disposition home or self-care (01) ==
PROVIDERS: PCP Physician Assistant; Visit Provider Physician Assistant
DX: Z00.00 Encounter for general adult medical examination without abnormal findings (principal); F41.9 Anxiety disorder, unspecified; I10 Essential (primary) hypertension; F17.210 Nicotine dependence, cigarettes, uncomplicated; I83.12 Varicose veins of left lower extremity with inflammation; K58.0 Irritable bowel syndrome with diarrhea; Z23 Encounter for immunization
CPT/HCPCS: 90471; 90677; 99396; 99406

== ENCOUNTER 2023-04-19 08:27 | Outpatient (REF) | payer OTHER, SELFPAY ==
--- NOTE | ~2023-04-19 | US_ITS ---
EXAMINATION: RIGHT and LEFT LOWER EXTREMITY VENOUS ULTRASOUND (Reflux Exam) CLINICAL INDICATION: Varicose veins of left lower extremity with inflammation COMPARISON: None. TECHNIQUE: Color flow triplex imaging and compression Doppler was performed to evaluate both the deep and the superficial systems bilaterally. To evaluate the superficial system, the examination was performed in the upright position. Color-flow Doppler ultrasound and compression ultrasound were utilized. In addition, maneuvers were utilized to demonstrate reflux. FINDINGS: 1. DEEP VENOUS ULTRASOUND OF THE RIGHT LOWER EXTREMITY: Respiratory variation, normal compression and augmented flow are noted in the right common femoral vein, right femoral vein, as well as the right popliteal vein and there is no evidence of deep venous thrombosis at these locations. There is no evidence of reflux in the deep system in either the common femoral vein or the popliteal vein. . There is no evidence of a Perez's cyst. 2. SUPERFICIAL ULTRASOUND WITH DOPPLER OF RIGHT LOWER EXTREMITY: The right great saphenous vein at the saphenofemoral junction measures 7 mm, at the mid thigh 3 mm, [id number]-[id number]-xtro 4 mm, ibxfe-dok-jwls 3 mm, at mid calf 2 mm and at the ankle measures 2 mm. There is reflux demonstrated in the right great saphenous vein. Accessory vein noted laterally measuring up to 2 mm without reflux. The right small saphenous vein measures 3 mm and shows no reflux. Single clothing supervisor at the level of the chest the mid calf measuring 1 mm without reflux. Varicose veins measuring up to 3 mm with reflux. 3. DEEP VENOUS ULTRASOUND OF THE LEFT LOWER EXTREMITY: Respiratory variation, normal compression and augmented flow are noted in the left common femoral vein, femoral vein as well as the left popliteal vein and there is no evidence of deep venous thrombosis at these locations. There is no evidence of reflux in the deep system in either the common femoral vein or the popliteal vein. . There is no evidence of a Perez's cyst. 4. SUPERFICIAL ULTRASOUND WITH DOPPLER OF LEFT LOWER EXTREMITY: Left great saphenous vein at the saphenofemoral junction measures 7 mm, at the mid thigh 2 mm, qmtil-juo-fibu 2 mm, dffrk-vdn-ldzy 2 mm, at mid calf 2 mm and at the ankle measures 1 mm. There is reflux demonstrated in the left great saphenous vein. The left small saphenous vein measures 2 mm and shows no reflux. 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 Focal outpouching of duplicated GSV at the left distal thigh. Left duplicated great saphenous vein at the saphenofemoral junction measures 7 mm, at the mid thigh 3 mm, czmml-efk-[id number] 9 mm, yciaf-bke-oukz 2 mm. There is reflux demonstrated in the duplicated left great saphenous vein. No perforators noted. Multiple varicose veins measuring up to 3 mm with reflux. US/US venous duplex LE BI IMPRESSION: 1. RIGHT: No reflux of the deep system. Reflux of the superficial system. Single clothing supervisor without reflux. Varicose veins with reflux. 2. LEFT: No reflux of the deep system. Reflux of the superficial system. Duplicated GSV with reflux. No perforators. Varicose veins with reflux.
== END 2023-04-19 08:28 | disposition home or self-care (01) ==
LOC: HO.US 08:27
PROVIDERS: Visit Provider Surgery Vascular Surgery
DX: I83.12 Varicose veins of left lower extremity with inflammation (principal)
CPT/HCPCS: 93970

== ENCOUNTER → 2023-04-27 15:24 | Outpatient (BNVA) | payer OTHER, SELFPAY | PROVIDERS: PCP Physician Assistant; Visit Provider Surgery Vascular Surgery ==

== ENCOUNTER 2023-04-27 15:28 | Outpatient (AMB) | payer OTHER, SELFPAY ==
--- NOTE | 2023-04-27 15:27 | A.OFFVIS_ITS ---
Intake Intake Visit Reasons: FU US Intake Note: pt here for FU US on 04/19/23 she states that she is doing the same and that it is her left leg that she is concern about. 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 She has significantly swollen and painful lower extremities. She reports that the left is more painful than right. She now presents for follow-up with venous insufficiency testing. Of note she has used compression stockings with minimal relief. [facility] Medical History MCL sprain of left knee Tear of medial meniscus of left knee Enlarged lymph node Hypertension Surgical History History of laparoscopy Family History Mother History of leukemia History of basal cell carcinoma History of breast cancer, Onset Age: 58 Maternal Grandmother History of pancreatic cancer Maternal Grandmother History of breast cancer Father TIA (transient ischemic attack), Onset Age: 50 CAD (coronary artery disease) Social History Housing: House Alcohol intake: current Alcohol intake frequency: a few times a week Alcohol type: wine Patient Tobacco Use Status: Current someday Tobacco user Tobacco use type: Cigarette Cigarettes Per Day: 5 e-Cigarette/Vaping Use: Never Used Second Hand Smoke Exposure: Yes service: No Current occupational status: employed 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[employer] Cognitive needs: No Hearing needs: No Vision needs: No Female Reproductive History Menstrual Age of Menarche: 11 Review of Systems Const Reports as per HPI ENT Reports no additional complaints Card Denies chest pain, Denies chest pain at rest and Denies chest pain with activity Resp Denies chest congestion and Denies cough GI Reports no additional complaints Musc Details: pain over varicosities, aching of lower extremities, swelling, cramping, heaviness and tiredness, itching Denies abnormal gait Skin/Breast Reports pruritus and Denies wounds Neuro Reports no additional complaints and Denies abnormal gait Psych Denies no additional complaints Physical Exam Const General: cooperative, healthy appearing and comfortable Orientation/consciousness: oriented to person, oriented to place and oriented to time Neck Carotids: no bruits Chest Chest palpation & inspection: normal inspection of the chest and normal palpation of entire chest wall Resp Effort & Inspection: normal respiratory effort and able to speak in complete sentences Cardio Rate: regular rate Heart sounds: S1 normal heart sound present and S2 normal heart sound present Peripheral pulses: Peripheral pulses 2+ throughout GI Inspection: Yes normal to inspection Skin Other: +2 edema, large rope-like varicosities greater than 4 mm CEAP Classification C4 - skin color changes Ep - Etiology Primary As - superficial veins P - reflux General skin exam: dry skin Neuro General: oriented to person, oriented to place and oriented to time Extrem Right lower extremity: full ROM, normal capillary refill and edema Left lower extremity: full ROM, normal capillary refill and edema Psych Mental Status: mental status grossly normal Results Reviewed Results Reviewed: Brief summary of venous insufficiency testing is as follows: right great saphenous vein: Positive right small saphenous vein: negative right accessory vein: none present left great saphenous vein: Positive left small saphenous vein: Negative left accessory vein: Present and positive Please note there is no evidence of any venous aneurysms or significant tortuosity Assessment & Plan Assessment & Plan (1) Varicose veins of left lower extremity with inflammation: Code(s): I83.12 - Varicose veins of left lower extremity with inflammation Plan: This patient has varicose veins with inflammation. They continue to be a source of discomfort for the patient. The patient has tried conservative treatment with compression, leg elevation and exercise program for over 3 months time. They have been compliant with all treatment. This has provided minimal relief for the patient. I do not anticipate this course of treatment will alter the underlying etiology. The patient has been scheduled for lower extremity venous treatment inclusive of --- left accessory saphenous vein Cyanoacralate ablation. Risks, benefits, and complications of this procedure has been discussed in detail with the patient including but not limited to bleeding, infection, and the development of a DVT. The patient has demonstrated a clear understanding and has consented. We will schedule the patient as soon as possible. Thank you for allowing us to participate in this patient's care. If there are any questions or concerns please do not hesitate to contact us. Coding Level of Care Code Est Pt Level 4 (53257) Diagnoses Varicose veins of left lower extremity with inflammation I83.12
== END 2023-04-27 15:48 | disposition home or self-care (01) ==
PROVIDERS: PCP Physician Assistant; Visit Provider Surgery Vascular Surgery
DX: I83.12 Varicose veins of left lower extremity with inflammation (principal)
CPT/HCPCS: 99214

== ENCOUNTER 2023-05-07 10:17 | Outpatient (AMB) | payer OTHER, SELFPAY ==
[2023-05-07 10:49] VITALS: BMI 28.3
--- NOTE | 2023-05-07 10:49 | A.OFFVIS_ITS ---
Intake Vital Signs 05/07/23 10:49 Height 5 ft 2 in Weight 155 lb BMI 28.3 Intake Visit Reasons: Left GSV Venaseal Allergies cat dander Allergy (Verified 05/07/23 10:50) Unknown seasonal Allergy (Unknown, Uncoded 05/07/23 10:50) Unknown [facility] Medical History MCL sprain of left knee Tear of medial meniscus of left knee Enlarged lymph node Hypertension Surgical History History of laparoscopy Family History Mother History of leukemia History of basal cell carcinoma History of breast cancer, Onset Age: 58 Maternal Grandmother History of pancreatic cancer Maternal Grandmother History of breast cancer Father TIA (transient ischemic attack), Onset Age: 50 CAD (coronary artery disease) Social History Housing: House Alcohol intake: current Alcohol intake frequency: a few times a week Alcohol type: wine Patient Tobacco Use Status: Current someday Tobacco user Tobacco use type: Cigarette Cigarettes Per Day: 5 e-Cigarette/Vaping Use: Never Used Second Hand Smoke Exposure: Yes service: No Current occupational status: employed 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 The depth and diameter of the vein(s) to be treated was documented. The patient was placed supine on the procedure table and the leg was prepped and draped using sterile technique. Ultasound guidance was again used to localize the access site. 1% lidocaine was injected as a local anesthetic in the subcutaneous tissues at the target location in the GSV in the lower leg. Using ultrasound guidance, access was gained at this location with the 19 gauge thin walled access needle and followed by introduction of a short guidewire, location confirmed with ultrasound. A small, 3 mm incision was made at the access site to allow for introduction and placement of the 7 Fr x7cm introducer/dilator. The dilator and guidewire were removed. The 0.035 guidewire from the VenaSeal kit was then introduced and positioned at the saphenofemoral junction using ultrasound guidance. The 80 cm 7 Fr introducer sheath/dilator was positioned 5cm from the saphenofemoral junction. The guidewire and dilator were removed, and the remaining sheath was flushed with sterile saline, with the syringe remaining in place prior to the next steps. The cyanoacrylate adhesive was precisely primed into the 5 F delivery catheter and this catheter/syringe combination was attached within the dispenser gun. This assembly was introduced through the 7F sheath and positioned 5 cm caudal of the saphenofemoral junction under ultrasound guidance. The steps from the IFU were followed for dispensing amounts, locations and compression times, 2 aliquots proximally with 3 minutes of compression, and 1 aliquot every 3 cm distally with 30 sec of compression along the course of the vessel. Following the last injection and compression sequence, the catheter and introducer sheath were pulled out from the access site. Hemostasis was achieved with manual compression and an adhesive bandage was applied to the incision. Ultrasound confirmed complete coaptation and closure of the treated segments of the GSV, and the absence of any DVT at the saphenofemoral junction. Treatment time was approximately 5 minutes and the vein length treated was 23 cm. The drapes were removed and the patient cleaned and prepared for discharge. Post op ultrasound check is scheduled for 48-72 hours and the patient was given written post-op instructions. 05299 - Endoven Ther Chem Adhes 1st All charges added?: Procedure code (CPT) selection complete Coding Level of Care Code Procedure Only CPT Codes Details - Vascular 3: 81212 - Endoven Ther Chem Adhes 1st ([id number])
== END 2023-05-07 11:25 | disposition home or self-care (01) ==
PROVIDERS: PCP Physician Assistant; Visit Provider Surgery Vascular Surgery
DX: I83.12 Varicose veins of left lower extremity with inflammation (principal)
CPT/HCPCS: 36482

== ENCOUNTER → 2023-05-07 10:17 | Outpatient (BNVA) | payer OTHER, SELFPAY | PROVIDERS: PCP Physician Assistant; Visit Provider Surgery Vascular Surgery | DX: I83.12 Varicose veins of left lower extremity with inflammation (principal); I10 Essential (primary) hypertension | CPT/HCPCS: 36482 ==

== ENCOUNTER 2023-05-10 15:32 | Outpatient (REF) | payer OTHER, SELFPAY ==
--- NOTE | ~2023-05-10 | US_ITS ---
EXAMINATION: TRIPLEX SCANNING OF LEFT LOWER EXTREMITY; SUPERFICIAL ULTRASOUND WITH DOPPLER OF LEFT LOWER EXTREMITY CLINICAL INFORMATION: Status post Venaseal of the left great saphenous vein Ambulatory phlebectomy performed: No COMPARISON: preprocedure studies. TECHNIQUE: Color flow triplex imaging and compression Doppler were performed as well as superficial ultrasound with Doppler. FINDINGS: LEFT LOWER EXTREMITY DEEP VENOUS SYSTEM: Respiratory variation, normal compression and augmented flow are noted throughout the lower extremity. The visualized common femoral vein, femoral vein, profunda femoral vein, popliteal vein and the calf veins show no evidence of deep venous thrombosis. There is no evidence of Perez's cyst. SUPERFICIAL VENOUS SYSTEM: The great saphenous vein is occluded from the access site to just before the saphenofemoral junction. There is no extension of thrombus into the deep system. US/US venous duplex LE LT IMPRESSION: 1. No evidence of DVT. 2. Excellent appearance status post ablation of the left great saphenous vein.
== END 2023-05-10 15:33 | disposition home or self-care (01) ==
LOC: HO.US 15:32
PROVIDERS: PCP Physician Assistant; Visit Provider Surgery Vascular Surgery
DX: M79.605 Pain in left leg (principal)
CPT/HCPCS: 93971

== ENCOUNTER 2023-05-19 08:28 | Outpatient (REF) | payer OTHER, SELFPAY ==
[2023-05-19 11:00] LABS: Alanine Aminotransferase 14 U/L (0-31); Albumin Level 4.3 g/dL (3.5-5.0); Alkaline Phosphatase 66 U/L (39-117); Anion Gap 11 (12-20); Aspartate Amino Transferase 20 U/L (5-31); Bilirubin Total 0.2 mg/dL (0.0-1.0); Blood Urea Nitrogen 14 mg/dL (9-16); Calcium 9.3 mg/dL (8.4-10.2); Carbon Dioxide 27 mmol/L (22-29); Chloride 105 mmol/L (96-108); Estimated Glomerular Filt Rate > 60; Glucose Fasting 98 mg/dL (60-99); Potassium 4.7 mmol/L (3.3-5.1); Sodium 138 mmol/L (135-145); Total Protein 7.6 g/dL (6.5-8.0)
[2023-05-19 11:07] LABS: Creatinine Urine 93.98 mg/dL; Microalbum/Creatinine Ratio Ur 6.3 ug/mg cr (<30)
== END 2023-05-19 08:29 | disposition home or self-care (01) ==
LOC: HO.10HDL 08:28
PROVIDERS: Visit Provider Physician Assistant
DX: I10 Essential (primary) hypertension (principal)
CPT/HCPCS: 36415; 80053; 82043; 82570

== ENCOUNTER 2023-05-20 15:10 | Outpatient (AMB) | payer OTHER, SELFPAY ==
--- NOTE | 2023-05-20 15:10 | MHC.OFFVIS ---
Intake Vital Signs 05/20/23 15:13 Height 5 ft 2 in Weight 155 lb BMI 28.3 Intake Visit Reasons: 2 week follow up Left ASV Venaseal 05/07/23 Intake Note: pt here for a 2 week fu left ASV venaseal 0n 05/07/23 pt states lindy she has been doing ok but she did wake up with pain in her right leg today she says is been constant all day and iy has not gone away Allergies cat dander Allergy (Verified 05/20/23 15:14) Unknown seasonal Allergy (Unknown, Uncoded 05/07/23 10:50) Unknown HPI 2 week follow up Left ASV Venaseal 05/07/23 HPI Details Very pleasant 43-year-old female presents for evaluation status post left lower extremity Cyanoacralate ablation. She reports she has been doing fairly well with the procedure she reports that the itching was significantly less and over the last day or so she has developed significant irritation at the left thigh site. She notes no other issues postprocedure. Of note postprocedure ultrasound was negative for DVT PFSH Medical History MCL sprain of left knee Tear of medial meniscus of left knee Enlarged lymph node Hypertension Surgical History History of laparoscopy Family History Mother History of leukemia History of basal cell carcinoma History of breast cancer, Onset Age: 58 Maternal Grandmother History of pancreatic cancer Maternal Grandmother History of breast cancer Father TIA (transient ischemic attack), Onset Age: 50 CAD (coronary artery disease) Social History Housing: House Alcohol intake: current Alcohol intake frequency: a few times a week Alcohol type: wine Patient Tobacco Use Status: Current someday Tobacco user Tobacco use type: Cigarette Cigarettes Per Day: 5 e-Cigarette/Vaping Use: Never Used Second Hand Smoke Exposure: Yes service: No Current occupational status: employed 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[employer] Cognitive needs: No Hearing needs: No Vision needs: No Female Reproductive History Menstrual Age of Menarche: 11 Review of Systems Const All systems reviewed & are unremarkable except as noted in HPI and below Reports no additional complaints ENT Reports Normal hearing present Card Denies chest pain, Denies chest pain at rest, Denies chest pain with activity and Denies pedal edema Resp Denies cough GI Denies abdominal pain Musc Denies abnormal gait, Denies muscle cramps and Denies radiating pain into limb Skin/Breast Denies skin ulcer and Denies wounds Neuro Reports Normal hearing present and Denies abnormal gait Psych Reports no additional complaints Physical Exam Vital Signs: BMI result Body Mass Index 28.3 Const General: cooperative, healthy appearing and comfortable Orientation/consciousness: oriented to person, oriented to place and oriented to time HEENT Head: Yes normal to inspection Neck Neck: Yes normal visual inspection Carotids: no bruits Chest Chest palpation & inspection: normal inspection of the chest Resp Effort & Inspection: normal respiratory effort and able to speak in complete sentences Auscultation: clear to auscultation bilaterally, no crackles, no rales, no rhonchi and no wheezes Cardio Rate: regular rate Rhythm: regular rhythm Heart sounds: S1 normal heart sound present and S2 normal heart sound present Bruits: no carotid bruits Peripheral pulses: Peripheral pulses 2+ throughout GI Inspection: Yes normal to inspection Skin Other: Left medial thigh irritation Wounds: no wounds Hair: normal Neuro General: oriented to person, oriented to place and oriented to time Cranial nerves: Yes CN's II-XII intact bilaterally and Yes Normal hearing present Cognition (Neuro): normal cognition Motor exam (neuro): 5/5 motor strength present throughout Extrem Other: venous exam: No significant superficial varicosities or spider telangiectasias, minimal edema General: No clubbing, No cyanosis and No edema Psych Appearance: grossly normal Mental Status: mental status grossly normal Speech and movement: Normal speech and movement present Assessment & Plan Assessment & Plan (1) Varicose veins of left lower extremity with inflammation: Comment: 05/07/2023 - left great saphenous vein Cyanoacralate ablation Code(s): I83.12 - Varicose veins of left lower extremity with inflammation Plan: In short patient has done well with the left great saphenous vein ablation. She does have some irritation which I will prescribe hydrocortisone cream for. Should the air it Miriam and irritation not decrease be may be concerning for an allergic reaction and may require Medrol Dosepak which we will take care of. We did discuss routine conservative measures including compression elevation and exercise. She will hold off on treatment on the right leg for now as it is not symptomatic. Thank you for allowing us to assist in her care. If there are any questions or concerns please do not hesitate to contact us. Medications: New hydrocortisone 1% (Anti-Itch (hydrocortisone)) 1 appl topical BID-QID PRN 28.4 grams 0RF skin irritation Coding Level of Care Code Est Pt Level 3 (68410) Diagnoses Varicose veins of left lower extremity with inflammation I83.12
[2023-05-20 15:13] VITALS: BMI 28.3
== END 2023-05-20 15:35 | disposition home or self-care (01) ==
PROVIDERS: PCP Physician Assistant; Visit Provider Surgery Vascular Surgery
DX: I83.12 Varicose veins of left lower extremity with inflammation (principal)
CPT/HCPCS: 99213

== ENCOUNTER → 2023-05-20 15:10 | Outpatient (BNVA) | payer OTHER, SELFPAY | PROVIDERS: PCP Physician Assistant; Visit Provider Surgery Vascular Surgery ==

== ENCOUNTER 2023-06-10 13:30 | Outpatient (AMB) | payer OTHER, SELFPAY ==
[2023-06-10 13:36] VITALS: BMI 28.3
--- NOTE | 2023-06-10 13:36 | A.OFFVIS_ITS ---
Intake Vital Signs 06/10/23 13:36 Height 5 ft 2 in Weight 155 lb BMI 28.3 Intake Visit Reasons: Follow Up Venaseal/Allergic Reaction Intake Note: Follow up Left ASV Venaseal 05/07/23, pt states leg is back to normal and feeling better, less itching. Accompanied by: Self / Same As Patient Allergies cat dander Allergy (Verified 06/10/23 13:38) Unknown seasonal Allergy (Unknown, Uncoded 06/10/23 13:38) Unknown HPI Follow Up Venaseal/Allergic Reaction HPI Details Pleasant 43-year-old female presents for postprocedure evaluation regarding left great saphenous vein Cyanoacralate ablation. She did have a postprocedure reaction to this and was treated with a Medrol Dosepak. It appears to have resolved. She feels significantly better. In general she notes that the left leg is feeling better. Swelling and discomfort have decreased. Right lower extremity has similar issues with reflux. She is concerned about that as well. She now presents for follow-up. [facility] Medical History MCL sprain of left knee Tear of medial meniscus of left knee Enlarged lymph node Hypertension Surgical History History of laparoscopy Family History Mother History of leukemia History of basal cell carcinoma History of breast cancer, Onset Age: 58 Maternal Grandmother History of pancreatic cancer Maternal Grandmother History of breast cancer Father TIA (transient ischemic attack), Onset Age: 50 CAD (coronary artery disease) Social History Housing: House Alcohol intake: current Alcohol intake frequency: a few times a week Alcohol type: wine Patient Tobacco Use Status: Current someday Tobacco user Tobacco use type: Cigarette Cigarettes Per Day: 5 e-Cigarette/Vaping Use: Never Used Second Hand Smoke Exposure: Yes service: No Current occupational status: employed 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[employer] Cognitive needs: No Hearing needs: No Vision needs: No Female Reproductive History Menstrual Age of Menarche: 11 Review of Systems Const Reports as per HPI ENT Reports no additional complaints Card Denies chest pain, Denies chest pain at rest and Denies chest pain with activity Resp Denies chest congestion and Denies cough GI Reports no additional complaints Musc Details: pain over varicosities, aching of lower extremities, swelling, cramping, heaviness and tiredness, itching Denies abnormal gait Skin/Breast Reports pruritus and Denies wounds Neuro Reports no additional complaints and Denies abnormal gait Psych Denies no additional complaints Physical Exam Vital Signs: BMI result Body Mass Index 28.3 Const General: cooperative, healthy appearing and comfortable Orientation/consciousness: oriented to person, oriented to place and oriented to time Neck Carotids: no bruits Chest Chest palpation & inspection: normal inspection of the chest and normal palpation of entire chest wall Resp Effort & Inspection: normal respiratory effort and able to speak in complete sentences Cardio Rate: regular rate Heart sounds: S1 normal heart sound present and S2 normal heart sound present Peripheral pulses: Peripheral pulses 2+ throughout GI Inspection: Yes normal to inspection Skin Other: +2 edema, large rope-like varicosities greater than 4 mm CEAP Classification C4 - skin color changes Ep - Etiology Primary As - superficial veins P - reflux General skin exam: dry skin Neuro General: oriented to person, oriented to place and oriented to time Extrem Right lower extremity: full ROM, normal capillary refill and edema Left lower extremity: full ROM, normal capillary refill and edema Psych Mental Status: mental status grossly normal Results Reviewed Results Reviewed: Brief summary of venous insufficiency testing is as follows: right great saphenous vein: Positive right small saphenous vein: negative right accessory vein: none present left great saphenous vein: Ablated left small saphenous vein: negative left accessory vein: none present Please note there is no evidence of any venous aneurysms or significant tortuosity Assessment & Plan Assessment & Plan (1) Varicose veins of right lower extremity with inflammation: Code(s): I83.11 - Varicose veins of right lower extremity with inflammation Plan: This patient has varicose veins with inflammation. They continue to be a source of discomfort for the patient. The patient has tried conservative treatment with compression, leg elevation and exercise program for over 3 months time. They have been compliant with all treatment. This has provided minimal relief for the patient. I do not anticipate this course of treatment will alter the underlying etiology. The patient has been scheduled for lower extremity venous treatment inclusive of --- right great saphenous vein radiofrequency ablation. Risks, benefits, and complications of this procedure has been discussed in detail with the patient including but not limited to bleeding, infection, and the development of a DVT. The patient has demonstrated a clear understanding and has consented. We will schedule the patient as soon as possible. Thank you for allowing us to participate in this patient's care. If there are any questions or concerns please do not hesitate to contact us. (2) Varicose veins of left lower extremity with inflammation: Comment: 05/07/2023 - left great saphenous vein Cyanoacralate ablation Code(s): I83.12 - Varicose veins of left lower extremity with inflammation Plan: Doing well from ablation. I do think she had a mild allergic reaction which appears to have resolved. She was requested to contact us should symptoms recur. Coding Level of Care Code Est Pt Level 4 (66358) Diagnoses Varicose veins of right lower extremity with inflammation I83.11 Varicose veins of left lower extremity with inflammation I83.12
== END 2023-06-10 13:52 | disposition home or self-care (01) ==
LOC: HO.HVS 13:30
PROVIDERS: PCP Physician Assistant; Visit Provider Surgery Vascular Surgery
DX: I83.11 Varicose veins of right lower extremity with inflammation (principal); I83.12 Varicose veins of left lower extremity with inflammation
CPT/HCPCS: 99213

== ENCOUNTER → 2023-06-10 13:30 | Outpatient (BNVA) | payer OTHER, SELFPAY | PROVIDERS: PCP Physician Assistant; Visit Provider Surgery Vascular Surgery ==

== ENCOUNTER 2023-06-11 12:00 | Outpatient (REF) | payer OTHER, SELFPAY | END 2023-06-11 12:01 | disposition home or self-care (01) | LOC: HO.HOSX 12:00 | PROVIDERS: Visit Provider Orthopaedic Surgery | DX: S69.91XA Unspecified injury of right wrist, hand and finger(s), initial encounter (principal) | CPT/HCPCS: 73130 ==

== ENCOUNTER 2023-06-25 14:28 | Outpatient (AMB) | payer OTHER, SELFPAY ==
--- NOTE | 2023-06-25 14:32 | MHC.OFFVIS ---
Intake Vital Signs 06/25/23 14:33 Height 5 ft 2 in Weight 157 lb BMI 28.7 BP 130/82 Intake Visit Reasons: Annual Intake Note: no concerns Department Manager Required: No Information Interpreted: non-clinical & clinical Stores Naval: Stores [employer] Present (Luann NOE) Accompanied by: Self / Same As Patient Allergies cat dander Allergy (Verified 06/25/23 14:37) Unknown seasonal Allergy (Unknown, Uncoded 06/25/23 14:37) Unknown Is last menstrual period known: Yes Last menstrual period: 06/06/23 HPI HPI Comments History of Present Illness Details She is a premenopausal woman presenting for annual examination. Doing well with no concerns. She tries to eat healthy and stays active with exercise. Regular monthly menses. Currently is not sexually active. She denies vaginal itching and irritation. STI screening offered; she accepts. Denies family history ovarian or colon cancer. FH: mother-breast cancer. Last pap smear 2021, negative. Mammogram: 2022. [facility] Medical History MCL sprain of left knee Tear of medial meniscus of left knee Enlarged lymph node Hypertension Surgical History History of laparoscopy Family History (Updated 06/25/23 @ 14:57 by Brenda Vasquez CNM) Mother History of leukemia History of basal cell carcinoma History of breast cancer, Onset Age: 58 Maternal Grandmother History of pancreatic cancer Maternal Grandmother History of breast cancer Father TIA (transient ischemic attack), Onset Age: 50 CAD (coronary artery disease) Social History (Updated 06/25/23 @ 14:39 by Luann Jacobson CMA) Household Members Other:: daughter Housing: House Alcohol intake: current Alcohol intake frequency: a few times a week Alcohol type: wine Patient Tobacco Use Status: Current someday Tobacco user Tobacco use type: Cigarette Cigarettes Per Day: 5 e-Cigarette/Vaping Use: Never Used Second Hand Smoke Exposure: Yes service: No Current occupational status: employed 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[employer] Sexually active: No Sexual orientation: Straight/Heterosexual Gender identity: Female Cognitive needs: No Hearing needs: No Vision needs: No Female Reproductive History Menstrual Age of Menarche: 11 Date of last menstrual period: 06/06/23 Total pregnancies: 2 Full term: 1 Number of Living Children: 1 Ectopics: 1 Date of last pap smear: 06/18/22 Date of Mammogram: 03/29/23 Review of Systems Const All systems reviewed & are unremarkable except as noted in HPI and below Reports as per HPI Eyes Reports no additional complaints ENT Reports no additional complaints Card Reports no additional complaints Resp Reports no additional complaints GI Reports as per HPI and Reports no additional complaints Reports as per HPI Musc Reports no additional complaints Skin/Breast Reports as per HPI Neuro Reports no additional complaints Psych Reports no additional complaints Endo Reports no additional complaints Chalo/Lymph Reports no additional complaints Aller/Immun Reports no additional complaints Physical Exam Vital Signs: Last Vital Signs BP 130/82 06/25/23 14:33 BMI result Body Mass Index 28.7 Const General: cooperative, healthy appearing, no acute distress, well developed and alert Orientation/consciousness: patient oriented x3 HEENT Head: Yes normal to inspection Eyes General: appearance normal, both eyes and all related structures Neck Neck: Yes normal visual inspection Thyroid: Thyroid normal Chest Chest palpation & inspection: normal inspection of the chest and other (no puckering, dimpling, peau de orange, retraction, discharge, masses) Breast/axilla inspection: normal inspection of the breasts Breast/axilla palpation: normal palpation of the breasts Resp Effort & Inspection: normal respiratory effort GI Inspection: Yes normal to inspection Palpation (GI): Soft to palpation Rectal Exam - Female: deferred General: Yes bladder normal to palpation External Female Exam: normal external appearance and normal appearance of the urethra Speculum Exam - Vagina: normal appearance of the vagina, normal palpation and normal vaginal discharge Speculum Exam - Cervix: normal appearance of the cervix and normal palpation Bimanual exam- vagina & uterus: normal bimanual exam, normal palpation, uterine size normal, bladder normal to palpation, normal palpation and non-tender Bimanual Exam- Adnexa, other: no masses Skin General skin exam: no rashes or lesions noted Rashes: no rashes Neuro General: patient oriented x3 Cognition (Neuro): normal cognition Extrem General: Yes normal to inspection Psych Attitude: cooperative Thought process: Normal thought process present Assessment & Plan Assessment & Plan (1) Encounter for well woman exam with routine gynecological exam: Code(s): Z01.419 - Encounter for gynecological examination (general) (routine) without abnormal findings Plan Discussed: Current recommendations for pap smears per ASCCP guidelines. Breast awareness and periodic breast exams. Maintain a healthy lifestyle including a well balanced diet and routine exercise. Use condoms for STI and prevention. Mammogram yearly. Colonoscopy >45, or at risk sooner. Discussed bracket testing, if desired send request for referral. All of her questions and concerns were addressed to the best of my ability. RTO in one year for annual manager wireless examination. This note is constructed using voice recognition software. While every effort has been made to ensure accuracy, neuropsychology service director errors may have been included. Orders: Orders Bacterial Vaginosis Panel Today Z20.2 - Contact with and (suspected) exposure to infections with a predominantly sexual mode of transmission HIV Ab/Ag Today Z20.2 - Contact with and (suspected) exposure to infections with a predominantly sexual mode of transmission Hepatitis C Antibody Today Z20.2 - Contact with and (suspected) exposure to infections with a predominantly sexual mode of transmission Hepatitis B Core Antibody Today Z20.2 - Contact with and (suspected) exposure to infections with a predominantly sexual mode of transmission CT NG by PCR Today Z20.2 - Contact with and (suspected) exposure to infections with a predominantly sexual mode of transmission Syphilis Screen Today Z20.2 - Contact with and (suspected) exposure to infections with a predominantly sexual mode of transmission Coding Level of Care Code Est Pt Prev Care 40-64y(10077) Diagnoses Encounter for well woman exam with routine gynecological exam Z01.419
[2023-06-25 14:33] VITALS: BP 130/82; BMI 28.7
== END 2023-06-25 15:40 | disposition home or self-care (01) ==
LOC: HO.HWS 14:28
PROVIDERS: PCP Physician Assistant; Visit Provider Advanced Practice Midwife
DX: Z01.419 Encounter for gynecological examination (general) (routine) without abnormal findings (principal)
CPT/HCPCS: 99396

== ENCOUNTER 2023-06-25 14:28 | Outpatient (REF) | payer OTHER, SELFPAY | END 2023-06-25 14:29 | disposition home or self-care (01) | LOC: HO.LNP 14:28 | PROVIDERS: PCP Physician Assistant; Visit Provider Advanced Practice Midwife | DX: Z01.419 Encounter for gynecological examination (general) (routine) without abnormal findings (principal); Z20.2 Contact with and (suspected) exposure to infections with a predominantly sexual mode of transmission | CPT/HCPCS: 0353U; 87480; 87510; 87660 ==

== ENCOUNTER 2023-07-30 10:39 | Outpatient (AMB) | payer OTHER, SELFPAY ==
[2023-07-30 10:44] VITALS: BMI 28.7
--- NOTE | 2023-07-30 10:44 | MHC.OFFVIS ---
Intake Vital Signs 07/30/23 10:44 Height 5 ft 2 in Weight 157 lb BMI 28.7 Intake Visit Reasons: Right GSV RFA Allergies cat dander Allergy (Verified 07/30/23 10:45) Unknown seasonal Allergy (Unknown, Uncoded 06/25/23 14:37) Unknown [facility] Medical History MCL sprain of left knee Tear of medial meniscus of left knee Enlarged lymph node Hypertension Surgical History History of laparoscopy Family History Mother History of leukemia History of basal cell carcinoma History of breast cancer, Onset Age: 58 Maternal Grandmother History of pancreatic cancer Maternal Grandmother History of breast cancer Father TIA (transient ischemic attack), Onset Age: 50 CAD (coronary artery disease) Social History Household Members Other:: daughter Housing: House Alcohol intake: current Alcohol intake frequency: a few times a week Alcohol type: wine Patient Tobacco Use Status: Current someday Tobacco user Tobacco use type: Cigarette Cigarettes Per Day: 5 e-Cigarette/Vaping Use: Never Used Second Hand Smoke Exposure: Yes service: No Current occupational status: employed 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 Anesthesia: Local infiltration 5 cc, Tumescent 250 cc. Estimated Blood Loss: Minimal Specimen: Varicose veins The patient was transferred to the procedure suite and the insufficient saphenous vein was mapped by ultrasound and diagrammed on the overlying skin. The depth and diameter of the vein(s) to be treated was documented. The varicose tributary veins and suitable access sites were identified and mapped as well. The patient was then positioned supine on the procedure table. The affected limb was prepped and draped in the usual sterile fashion. The RF catheter was placed on the sterile field, flushed and wiped down, prepared, and connected by a sterile cable. The patient was placed in reverse- Trendelenburg position and local anesthesia was instilled in the skin overlying the access site. A skin incision was made overlying the identified and mapped great saphenous vein entry site. The vein was accessed using ultrasound guidance and the Seldinger technique, a guide wire was introduced through the needle, which was then exchanged over the guide wire for a 6F sheath, which was secured in place. The guide wire was removed and the sheath was flushed. The RF catheter was placed into the vein through the sheath and preferentially, imaging was used to place the catheter tip just inferior to the superficial epigastric vein to preserve normal physiological flow in that vein. Additionally, it was confirmed by ultrasound guidance that the catheter tip was also placed a minimum of 1.5cm distal to the saphenofemoral junction. After the RF catheter position was verified by ultrasound, tumescent anesthesia was infiltrated, under ultrasound guidance, precisely into the perivenous compartment along the entire length of vein from the entry site to the saphenofemoral junction until a halo of fluid was noted around the vein. The patient was then placed in Trendelenburg position to further exsanguinate the superficial venous system. After RF catheter position was again confirmed with ultrasound imaging, and under direct external compression along the length of the heating element, RF energy was applied. The vein was segmentally ablated by heating a 8 cm segment and then indexing the catheter forward by 7.5 cm until the treatment length is completed. Device temperature was maintained at 120 plus or minus 5 degrees C with an initial power level of 40W dropping to below 20W for each treatment. Total vein length treated 24 cm Total cycles of RF sick. Repeat ultrasound of the saphenous vein was performed, confirming successful treatment. The catheter and sheath were withdrawn and hemostasis established with direct pressure. After assuring hemostasis, the skin incision over the saphenous vein was closed with a bandage and a compression wrap, and/ or graduated compression stocking was applied from the level of the foot to the most proximal level of the thigh. 95000 - Endovenous RF, 1st Vein All charges added?: Procedure code (CPT) selection complete Assessment & Plan Assessment & Plan (1) Varicose veins of right lower extremity with inflammation: Comment: 07/30/2023 - right great saphenous vein Radiofrequency ablation Code(s): I83.11 - Varicose veins of right lower extremity with inflammation Plan: See op note Coding Level of Care Code Procedure Only Diagnoses Varicose veins of right lower extremity with inflammation I83.11 CPT Codes Details - Vascular 1: 74781 - Endovenous RF, 1st Vein ([id number])
== END 2023-07-30 11:31 | disposition home or self-care (01) ==
PROVIDERS: PCP Physician Assistant; Visit Provider Surgery Vascular Surgery
DX: I83.11 Varicose veins of right lower extremity with inflammation (principal)
CPT/HCPCS: 36475

== ENCOUNTER → 2023-07-30 10:39 | Outpatient (BNVA) | payer OTHER, SELFPAY | PROVIDERS: PCP Physician Assistant; Visit Provider Surgery Vascular Surgery | DX: I83.11 Varicose veins of right lower extremity with inflammation (principal) | CPT/HCPCS: 36475 ==

== ENCOUNTER 2023-08-02 11:30 | Outpatient (REF) | payer OTHER, SELFPAY ==
--- NOTE | ~2023-08-02 | US_ITS ---
EXAMINATION: US VENOUS ULTRASOUND WITH DOPPLER LOWER EXTREMITY, RIGHT CLINICAL INFORMATION: Pain in right leg COMPARISON: None available. TECHNIQUE: Ultrasound of the deep veins is performed from the hip to the calf with compression sonography and color and pulse Doppler assessment. Spectral analysis with color-flow imaging is performed. FINDINGS: DEEP VENOUS SYSTEM: There is normal venous compression and respiratory variation and augmented flow. The visualized common femoral vein, superficial femoral vein, profunda femoral vein, popliteal vein, and the trifurcation region shows no evidence of deep venous thrombosis. SUPERFICIAL VENOUS SYSTEM: Venaseal procedure was performed on 07/30/2023. The greater saphenous vein is closed 3.5 cm from the saphenofemoral junction. There is no extension of thrombus into the deep system. US/US venous duplex LE RT IMPRESSION: No DVT demonstrated in the right lower extremity. Excellent appearance status post ablation of the left greater saphenous vein.
== END 2023-08-02 11:31 | disposition home or self-care (01) ==
LOC: HO.US 11:30
PROVIDERS: PCP Physician Assistant; Visit Provider Surgery Vascular Surgery
DX: M79.604 Pain in right leg (principal)
CPT/HCPCS: 93971

== ENCOUNTER 2023-08-12 11:46 | Outpatient (AMB) | payer OTHER, SELFPAY ==
[2023-08-12 11:47] VITALS: BMI 28.7
--- NOTE | 2023-08-12 11:47 | MHC.OFFVIS ---
Intake Vital Signs 08/12/23 11:47 Height 5 ft 2 in Weight 157 lb BMI 28.7 Intake Visit Reasons: 2 week follow up R GSV RFA 07/30/23 Intake Note: 2 week follow up Right GSV RFA 07/30/23 and Hx of Left GSV Aexvqtgm41/17/23. Pt states she has some soreness over treated area over last few days. Does have some VV on the Left LE still. Accompanied by: Self / Same As Patient Allergies cat dander Allergy (Verified 08/12/23 11:49) Unknown seasonal Allergy (Unknown, Uncoded 08/12/23 11:49) Unknown HPI 2 week follow up R GSV RFA 07/30/23 HPI Details Very pleasant 43-year-old female presents for follow-up regarding right great saphenous vein ablation. Reports that she is doing fairly well. She had a prior left great saphenous vein Cyanoacralate ablation which she did have a little bit of a reaction. Overall legs appear to be doing better. Swelling and discomfort have decreased along with some superficial varicosities. She now presents for routine follow-up [facility] Medical History MCL sprain of left knee Tear of medial meniscus of left knee Enlarged lymph node Hypertension Surgical History History of laparoscopy Family History Mother History of leukemia History of basal cell carcinoma History of breast cancer, Onset Age: 58 Maternal Grandmother History of pancreatic cancer Maternal Grandmother History of breast cancer Father TIA (transient ischemic attack), Onset Age: 50 CAD (coronary artery disease) Social History Household Members Other:: daughter Housing: House Alcohol intake: current Alcohol intake frequency: a few times a week Alcohol type: wine Patient Tobacco Use Status: Current someday Tobacco user Tobacco use type: Cigarette Cigarettes Per Day: 5 e-Cigarette/Vaping Use: Never Used Second Hand Smoke Exposure: Yes service: No Current occupational status: employed 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[employer] Sexual 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: Straight/Heterosexual Gender identity: Female Cognitive needs: No Hearing needs: No Vision needs: No Female Reproductive History Menstrual Age of Menarche: 11 Review of Systems Const All systems reviewed & are unremarkable except as noted in HPI and below Reports no additional complaints ENT Reports Normal hearing present Card Denies chest pain, Denies chest pain at rest, Denies chest pain with activity and Denies pedal edema Resp Denies cough GI Denies abdominal pain Musc Denies abnormal gait, Denies muscle cramps and Denies radiating pain into limb Skin/Breast Denies skin ulcer and Denies wounds Neuro Reports Normal hearing present and Denies abnormal gait Psych Reports no additional complaints Physical Exam Vital Signs: BMI result Body Mass Index 28.7 Const General: cooperative, healthy appearing and comfortable Orientation/consciousness: oriented to person, oriented to place and oriented to time HEENT Head: Yes normal to inspection Neck Neck: Yes normal visual inspection Carotids: no bruits Chest Chest palpation & inspection: normal inspection of the chest Resp Effort & Inspection: normal respiratory effort and able to speak in complete sentences Auscultation: clear to auscultation bilaterally, no crackles, no rales, no rhonchi and no wheezes Cardio Rate: regular rate Rhythm: regular rhythm Heart sounds: S1 normal heart sound present and S2 normal heart sound present Bruits: no carotid bruits Peripheral pulses: Peripheral pulses 2+ throughout GI Inspection: Yes normal to inspection Skin Wounds: no wounds Hair: normal Neuro General: oriented to person, oriented to place and oriented to time Cranial nerves: Yes CN's II-XII intact bilaterally and Yes Normal hearing present Cognition (Neuro): normal cognition Motor exam (neuro): 5/5 motor strength present throughout Extrem Other: venous exam: No significant superficial varicosities or spider telangiectasias, minimal edema General: No clubbing, No cyanosis and No edema Psych Appearance: grossly normal Mental Status: mental status grossly normal Speech and movement: Normal speech and movement present Assessment & Plan Assessment & Plan (1) Varicose veins of right lower extremity with inflammation: Comment: 07/30/2023 - right great saphenous vein Radiofrequency ablation Code(s): I83.11 - Varicose veins of right lower extremity with inflammation Plan: The patient has done extremely well with all venous treatments. Patient's may often experience postprocedure phlebitic episodes and I have discussed with the patient use of warm compresses and NSAIDS if tolerated for pain discomfort. In addition, I have discussed continued conservative measures including use of compression, leg elevation, and exercise. The patient was also given an information sheet regarding appropriate use of compression stockings and future purchases. Thank you for allowing us to care for your patient with venous disease. (2) Varicose veins of left lower extremity with inflammation: Comment: 05/07/2023 - left great saphenous vein Cyanoacralate ablation Code(s): I83.12 - Varicose veins of left lower extremity with inflammation Plan: See above Coding Level of Care Code Est Pt Level 3 (41921) Diagnoses Varicose veins of right lower extremity with inflammation I83.11 Varicose veins of left lower extremity with inflammation I83.12
== END 2023-08-12 11:58 | disposition home or self-care (01) ==
LOC: HO.HVS 11:47
PROVIDERS: PCP Physician Assistant; Visit Provider Surgery Vascular Surgery
DX: I83.11 Varicose veins of right lower extremity with inflammation (principal); I83.12 Varicose veins of left lower extremity with inflammation
CPT/HCPCS: 99213

== ENCOUNTER → 2023-08-12 11:46 | Outpatient (BNVA) | payer OTHER, SELFPAY | PROVIDERS: PCP Physician Assistant; Visit Provider Surgery Vascular Surgery ==

== ENCOUNTER 2024-04-06 09:10 | Outpatient (REF) | payer OTHER, SELFPAY ==
--- NOTE | ~2024-04-06 | MM_ITS ---
EXAMINATION: MM SCREENING DIGITAL BREAST TOMOSYNTHESIS, BILATERAL CLINICAL INFORMATION: Screening. Asymptomatic. COMPARISON: Mammography: Comparison is made with available priors TECHNIQUE: Digital breast mammography with tomosynthesis is performed in both the craniocaudal and mediolateral oblique views along with computer-aided detection (CAD). FINDINGS: The breasts are heterogeneously dense, which may obscure small masses (ACR BI-RADS breast composition Category c). There are no significant masses, abnormal calcifications, or other abnormalities. MM/MM tomosynthesis screening BI IMPRESSION: No mammographic evidence of malignancy. ASSESSMENT: BI-RADS BI-RADS 1 - Negative RECOMMENDATION: Routine annual mammography screening. 1 year F/U This examination should not preclude the clinical evaluation of a suspicious palpable abnormality. This patient's information was entered into a reminder system with a target due date for their next mammogram. Electronically signed by: Fabiola Henriquez DO 04/07/2024 10:02 AM HARRY
== END 2024-04-06 09:11 | disposition home or self-care (01) ==
LOC: HO.MAMMO 09:10
PROVIDERS: PCP Physician Assistant; Visit Provider Physician Assistant
DX: Z12.31 Encounter for screening mammogram for malignant neoplasm of breast (principal)
CPT/HCPCS: 77063; 77067

== ENCOUNTER → 2024-04-06 09:15 | Outpatient (BNV) | payer OTHER, SELFPAY | PROVIDERS: PCP Physician Assistant; Visit Provider Internal Medicine | DX: Z12.31 Encounter for screening mammogram for malignant neoplasm of breast (principal) | CPT/HCPCS: 77063; 77067 ==

== ENCOUNTER 2024-04-17 08:57 | Outpatient (AMB) | payer OTHER, SELFPAY ==
--- NOTE | 2024-04-17 09:02 | MHC.PC.OV ---
Vital Signs 04/17/24 09:04 Height 5 ft 2 in Weight 161 lb 2 oz BMI 29.5 BP 120/72 Blood Pressure Location Lt brachial Position Sitting Pulse 62 Pulse Source Pulse Oximeter Pulse Oximetry (%) 99 Oxygen Delivery Method Room Air Intake Visit Reasons: PE Intake Note: Patient is here today for a physical. Reference Archivist Required: No Casino Floorperson: Not Required per policy Accompanied by: Self / Same As Patient Allergies cat dander Allergy (Verified 04/17/24 09:14) Unknown seasonal Allergy (Unknown, Uncoded 04/17/24 09:14) Unknown Medication List - Last Reconciled 04/17/24 by Yariel Rose PA-C citalopram 10 mg PO DAILY L.acid,gas,tasha,rham-B.ani-cran 5 billion cell- 250 mg (up4 Probiotics Women's) caps PO pantoprazole 20 mg PO DAILY Tobacco use date assessed: 04/17/24 Dental Screening Dental Screen Date: 04/17/24 Did you have a dental visit in the last 12 months?: Yes Did you have a dental problem in the last 6 months where you did not have access to dental care?: No Was dental information given to patient?: Patient has dentist HPI PE HPI Details ?Kizzy is a 44 year-old female here today for a PE visit. Patient has a past medical history significant for essential hypertension, chronic migraines, anxiety. ? .. ? Hypertension:? Patient's blood pressure acceptable today in office. Has been able to manage her blood pressure without medication. Was previously on lisinopril 10 mg .. Peripheral vascular disease: Followed by vascular surgery here in [place]. .. Irritable bowel syndrome/ GERD: Her GI symptoms have been much improved since she has started probiotics and does use pantoprazole on an as needed basis. ? . ? Anxiety: Has been controlled on Celexa 10mg. ? .. ? Smoker: She does understand she needs to quit smoking. She is now somewhat interested in quitting smoking. She is interested in trying the nicotine gum which has worked for her in the past. ? .. ? .. ? Mammogram : . Mammogram done in 04/09/2024, BI-RADS 1-- Has Fmhx of breast cancer. .. Colorectal cancer screening- considering colonoscopy ? .. ? Vaccine: UTD with Flu, UTD with COVID, UTD with Tdap , up-to-date with pneumonia vaccine ? .. ? 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 Has not got any recent Pap and will call for annual physical. [facility] Medical History MCL sprain of left knee Tear of medial meniscus of left knee Enlarged lymph node Hypertension Surgical History History of laparoscopy Family History Mother History of leukemia History of basal cell carcinoma History of breast cancer, Onset Age: 58 Maternal Grandmother History of pancreatic cancer Maternal Grandmother History of breast cancer Father TIA (transient ischemic attack), Onset Age: 50 CAD (coronary artery disease) Social History (Updated 04/17/24 @ 09:19 by Yariel Rose PA-C) Household Members Other:: daughter Housing: House Alcohol intake: current Alcohol intake frequency: a few times a week Alcohol type: wine Patient Tobacco Use Status: Current someday Tobacco user Tobacco use type: Cigarette Cigarette Packs Per Day: 0.5 Cigarettes Per Day: 5 e-Cigarette/Vaping Use: Never Used Second Hand Smoke Exposure: Yes service: No Current occupational status: employed 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 1. Little interest or pleasure in doing things: not at all 2. Feeling down, depressed, or hopeless: not at all 3. Trouble falling or staying asleep, or sleeping too much: not at all 4. Feeling tired or having little energy: not at all 5. Poor appetite or overeating: not at all 6. Feeling bad about yourself - or that you are a failure or have let yourself or your family down: not at all 7. Trouble concentrating on things, such as reading the newspaper or watching television: not at all 8. Moving or speaking so slowly that other people could have noticed. Or the opposite - being so fidgety or restless that you have been moving around a lot more than usual: not at all 9. Thoughts that you would be better off or of hurting yourself in some way: not at all Total score: 0 Depression Screening Interpretation: Negative Depression Screening Done: Yes 65582 - PHQ-9 Billing: Yes Source: Developed by Drs. Gil Do, Renée Mullen, Thiago Woods and colleagues, with an educational uri from [employer]. Thrive Questionnaire Date Thrive assessed: 04/17/24 I am a: Patient What is your living situation today?: I have a steady place to live Within the past 12 months, did the food you bought not last and you didn't have the money to get more?: I choose not to answer this question Within the past 12 months, did you worry whether your food would run out before you got money to buy more?: I choose not to answer this question Do you have trouble paying for medicines?: I choose not to answer this question Do you have trouble getting transportation to medical appointments?: I choose not to answer this question Do you have trouble paying your heating and electricity bill?: I choose not to answer this question Do you have trouble taking care of your child, family member or friend?: I choose not to answer this question Do you have trouble with day-to-day activities such as bathing, preparing meals, shopping, managing finances, etc.?: No Are you currently unemployed and looking for a job?: No Are you interested in more education?: No Please select the resources that you would like help with: None Currently or been in a relationship where the following occur: I choose not to answer THRIVE Score: 0 AUDIT C Alcohol Use Questionnaire (AUDIT-C) 1. How often do you have a drink containing alcohol?: 2-4 times a month 2. How many drinks containing alcohol do you have on a typical day when you are drinking?: 1 or 2 3. How often do you have six or more drinks on one occasion?: Less than monthly Total Score: 3 PEMA-7 AMB Questionnaire PEMA-7 Date PEMA - 7 assessed: 04/17/24 Feeling nervous, anxious, or on edge: 1 = Several days Not being able to stop or control worryin = Several days Worrying too much about different things: 1 = Several days Trouble relaxin = Several days Being so restless that it is hard to sit still: 1 = Several days Becoming easily annoyed or irritable: 1 = Several days Feeling afraid as if something awful might happen: 1 = Several days Total PEMA-7 score (0-4 normal; 5-9 mild; 10-14 moderate; 15-21 severe): 7 Source: Developed by Drs. Gil Do, Renée Mullen, Thiago Woods and colleagues, with an educational uri from [employer]. PEMA-7 Assessment Billing PEMA-7 Assessment Tool: PEMA-7 Assessment 90092 Review of Systems Const Denies body aches, Denies chills, Denies excessive sweating, Denies fatigue, Denies fever(s) and Denies headache(s) Eyes Denies blurry vision ENT Denies dysphagia, Denies vertigo, Denies dizziness, Denies headache(s), Denies hearing loss and Denies tinnitus Card Denies chest pain, Denies chest pain with activity, Denies syncope, Denies irregular heart rhythm and Denies dyspnea Resp Denies chest congestion, Denies cough, Denies hemoptysis, Denies dyspnea and Denies wheezing GI Denies abdominal pain, Denies melena, Denies hematochezia, Denies coffee ground emesis, Denies dysphagia, Denies diarrhea, Denies nausea and Denies vomiting Denies urinary frequency, Denies dysuria, Denies urinary hesitancy and Denies urinary urgency Musc Denies arthralgias, Denies limited range of motion, Denies muscle cramps and Denies muscle weakness Skin/Breast Denies rash and Denies skin ulcer Neuro Denies Abnormal speech present, Denies confusion, Denies vertigo, Denies dizziness, Denies syncope, Denies headache(s), Denies memory loss and Denies seizure-like activity Psych Denies anxiety, Denies confusion, Denies depression, Denies memory loss, Denies panic attacks and Denies paranoia Endo Denies excessive sweating, Denies fatigue, Denies flushing, Denies polydipsia and Denies polyuria Aller/Immun Denies wheezing Physical exam (Primary Care) Vital Signs: Last Vital Signs Pulse 62 04/17/24 09:04 BP 120/72 04/17/24 09:04 Pulse Ox 99 04/17/24 09:04 Oxygen Delivery Method Room Air 04/17/24 09:04 BMI result Body Mass Index 29.5 Tobacco/Smoking Status: Tobacco use Status Tobacco use date assessed 04/17/24 04/17/24 09:08 Patient Tobacco Use Status Current someday Tobacco 04/17/24 09:08 Tobacco use type Cigarette 04/17/24 09:08 e-Cigarette/Vaping Use Never Used 04/17/24 09:08 Are you ready to quit: Yes Tobacco cessation counseling provided: Yes Items discussed: Nicotine replacement Relapse Prevention: discussed the importance of a supportive environment, discussed negative mood or depression after quitting, weight gain after smoking is common and discussed dietary, exercise and/or lifestyle changes Number of minutes spent counselin CPT code: 32454 - 4-10 Minutes PHQ-9: PHQ-9 Score PHQ-9: Total score 0 04/17/24 09:08 Depression Screening Interpretation: Negative Thrive Assessment: Date of Thrive Assessment Date Thrive assessed 04/17/24 04/17/24 09:08 Currently or been in a relationship where the following occur: I choose not to answer Const General: cooperative, comfortable, no acute distress, alert and awake; No confusion Orientation/consciousness: oriented to person, oriented to place, patient oriented x3 and No confusion HENMT Head: Yes normocephalic Ears: external ears normal and TM's normal bilaterally Face and sinus: No sinus tenderness Mouth: Normal oral and palatal mucosa present and tongue normal Teeth and gingiva: dentition normal and gingiva normal Throat: Yes posterior oropharynx normal, Yes tonsils normal and Yes uvula midline Eyes Conjunctivae: conjunctivae normal Sclerae: sclerae normal Pupils: Equal, round and reactive pupils present EOM: EOMs intact bilaterally Direct Ophthalmoscopy: No no photophobia Neck Neck: Yes no lymphadenopathy, No tender and Yes no JVD Thyroid: Thyroid normal Carotids: no bruits Chest Chest palpation & inspection: no tenderness Resp Effort & Inspection: normal respiratory effort, no audible wheezes, not labored and no stridor Auscultation: no crackles, no rales, no rhonchi and no wheezes Cardio Jugular venous distension: no JVD Rate: regular rate, not bradycardic and not tachycardic Rhythm: regular rhythm Bruits: no carotid bruits Peripheral pulses: Peripheral pulses 2+ throughout GI Inspection: Yes normal to inspection, No abdominal wall ecchymosis and No visible herniation Palpation (GI): Soft to palpation, nontender, no guarding, not rigid and No hepatosplenomegaly present Auscultation: normoactive bowel sounds General: Yes no CVA tenderness Back/Spine/Pelvis Back: no CVA tenderness and No back tenderness Cervical Spine: cervical ROM normal Thoracic/Lumbar Spine: thoracic and lumbar spine normal to inspection, straight leg raise negative bilaterally, No thoraco-lumbar ROM limited and No lumbar spinal tenderness Skin Lesions: no lesions Rashes: no rashes Wounds: no wounds Neuro General: oriented to person, oriented to place, patient oriented x3, CN's II-XI intact bilaterally and No confusion Cranial nerves: Yes Equal, round and reactive pupils present and Yes Normal accommodation reflex present Cognition (Neuro): normal cognition Speech: No Abnormal speech present Gait exam (Neuro): Normal gait present Motor exam (neuro): 5/5 motor strength present throughout Extrem Right upper extremity: full ROM; no cyanosis Left upper extremity: full ROM; no cyanosis Right lower extremity: no edema Left lower extremity: no edema Psych Appearance: grossly normal Mental Status: mental status grossly normal Affect: normal affect Attitude: cooperative Thought process: Normal thought process present Coding Level of Care Code Est Pt Prev Care 40-64y(00731) Diagnoses Annual physical exam Z00.00 Anxiety F41.9 Smoker F17.200 Primary hypertension I10 Hypertension type: primary hypertension Irritable bowel syndrome with diarrhea K58.0 Additional Codes Vital Signs *Quality* - CPT code: 56878 - 4-10 Minutes ([id number]) PEMA-7 Assessment Billing - PEMA-7 Assessment Tool: PEMA-7 Assessment 71201 ([id number]) Assessment & Plan Assessment & Plan (1) Annual physical exam: Code(s): Z00.00 - Encounter for general adult medical examination without abnormal findings Category: Medical Plan: As per HPI (2) Anxiety: Code(s): F41.9 - Anxiety disorder, unspecified Category: Medical Plan: Patient's PEMA-7 score positive for anxiety which has been existing condition. Patient's anxiety has been well controlled with current SSRI therapy. (3) Smoker: Code(s): F17.200 - Nicotine dependence, unspecified, uncomplicated Category: Social Hx Plan: Patient is interested in quitting smoking. Has used the gum in the past with good effect. Will prescribe a nicotine gum to help her with nicotine cravings. (4) HTN (hypertension): Code(s): I10 - Essential (primary) hypertension Category: Medical Qualifiers: Hypertension type: primary hypertension Qualified Code(s): I10 - Essential (primary) hypertension Plan: Patient's blood pressure acceptable today in office. Has been able to manage her blood pressure with lifestyle and dietary modifications. Goal blood pressures to remain below 140/90 (5) Irritable bowel syndrome with diarrhea: Code(s): K58.0 - Irritable bowel syndrome with diarrhea Category: Medical Plan: Patient was followed by gastroenterology. She has found that probiotics and pantoprazole have been helpful for her GI symptoms. Orders: Orders Comprehensive [place]. Panel Fast Today I10 - Essential (primary) hypertension Microalbumin, Random (w Creat) Today I10 - Essential (primary) hypertension Complete Blood Count no Diff Today I10 - Essential (primary) hypertension Medications: New nicotine (polacrilex) 2 mg buccal Q2H 15 days PRN 110 ea 0RF nicotine cravings F17.200 - Nicotine dependence, unspecified, uncomplicated Refilled pantoprazole 20 mg PO DAILY 90 tabs 0RF R10.10 - Upper abdominal pain, unspecified Patient Instructions: Goal: Blood pressure to remain below 140/90 Barriers: Adherence to physical activity and healthy eating habits
[2024-04-17 09:04] VITALS: BP 120/72; PULSE 62; O2SAT 99; BMI 29.5
== END 2024-04-17 09:29 | disposition home or self-care (01) ==
PROVIDERS: PCP Physician Assistant; Visit Provider Physician Assistant
DX: Z00.00 Encounter for general adult medical examination without abnormal findings (principal); F41.9 Anxiety disorder, unspecified; F17.200 Nicotine dependence, unspecified, uncomplicated; I10 Essential (primary) hypertension; K58.0 Irritable bowel syndrome with diarrhea

== ENCOUNTER → 2024-04-17 08:57 | Outpatient (BNVA) | payer OTHER, SELFPAY | PROVIDERS: PCP Physician Assistant; Visit Provider Physician Assistant | DX: Z00.00 Encounter for general adult medical examination without abnormal findings (principal); F41.9 Anxiety disorder, unspecified; I10 Essential (primary) hypertension; K58.0 Irritable bowel syndrome with diarrhea; F17.210 Nicotine dependence, cigarettes, uncomplicated; Z79.899 Other long term (current) drug therapy | CPT/HCPCS: 96127 ==

== ENCOUNTER 2024-05-08 10:33 | Outpatient (AMB) | payer OTHER, SELFPAY ==
[2024-05-08 10:33] VITALS: BMI 29.4
--- NOTE | 2024-05-08 10:33 | MHC.OFFVIS ---
Vital Signs 05/08/24 10:33 Height 5 ft 2 in Weight 161 lb BMI 29.4 Intake Visit Reasons: New Prob - Left Knee Pain Intake Note: Grzegorz is a 44 year old female who presents today for a new problem visit with complaints of left knee pain. Patient reports that she was doing squats at the gym 05/03/24 when she felt a pop in her knee with a sudden onset of pain. She reports previous injury to the left knee about a year ago. She has pain all the time, worse with walking and activity. She has tried and failed Tylenol and Ibuprofen. Allergies cat dander Allergy (Verified 05/11/24 14:03) Unknown seasonal Allergy (Unknown, Uncoded 05/11/24 14:03) Unknown HPI HPI New Prob - Left Knee Pain: Details: Grzegorz is a 44 year old female who presents today for a new problem visit with complaints of left knee pain. Patient reports that she was doing squats at the gym 05/03/24 when she felt a pop in her knee with a sudden onset of pain. She reports previous injury to the left knee about a year ago. She has pain all the time, worse with walking and activity. She has tried and failed Tylenol and Ibuprofen. [facility] Medical History MCL sprain of left knee Tear of medial meniscus of left knee Enlarged lymph node Hypertension Surgical History History of laparoscopy Family History Mother History of leukemia History of basal cell carcinoma History of breast cancer, Onset Age: 58 Maternal Grandmother History of pancreatic cancer Maternal Grandmother History of breast cancer Father TIA (transient ischemic attack), Onset Age: 50 CAD (coronary artery disease) Social History (Updated 04/17/24 @ 09:19 by Yariel Rose PA-C) Household Members Other:: daughter Housing: House Alcohol intake: current Alcohol intake frequency: a few times a week Alcohol type: wine Patient Tobacco Use Status: Current someday Tobacco user Tobacco use type: Cigarette Cigarette Packs Per Day: 0.5 Cigarettes Per Day: 5 e-Cigarette/Vaping Use: Never Used Second Hand Smoke Exposure: Yes service: No Current occupational status: employed 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 Assessment & Plan Assessment & Plan (1) Acute internal derangement of left knee: Code(s): M23.92 - Unspecified internal derangement of left knee Category: Medical Plan: 44-year-old status post twisting injury of the left knee. MRI ordered. Orders: Orders MR knee LT wo con 05/10/24 M23.92 - Unspecified internal derangement of left knee Coding Level of Care Code Est Pt Level 3 (87947) Diagnoses Acute internal derangement of left knee M23.92
--- OUTSIDE RECORDS SUMMARY | 2024-05-12 13:02 | XMS_ITS ---
Author Organization [facility] Address [address] [place] [address] Care Team Providers Care Weather Forcaster Name Role Phone Yariel Rose Primary Care Provider Unavailab Fatuma Mccord Unavailable [phone] REASON FOR VISIT Pedag Sport [employer] #[phone] Encounters Encounter Location Date Provider Diagnosis [facility] [address] [place] [address] 03/02/2023 Fatuma Ellis Plan Of Treatment No Information Progress Notes * CHERELLEEliASHLEY SimonaOB: [birth year] (42 yo F)Acc No.[id number]:03/02/2023 Patient:?KassihardeepKizzy :1980???Age:42 Y???Sex:Female Address:[address] [place] [address] * true * Date:? Generated for Printi ng/Fadaviang/eTransmitting on:?05/12/2024 01:02 PM EST
--- OUTSIDE RECORDS SUMMARY | 2024-05-12 13:03 | XMS_ITS ---
Author Organization [facility] Address [address] [place] [address] Care Team Providers Care Form Carpenter Name Role Phone Yariel Rose Primary Care Provider Unavailab Fatuma Mccord Unavailable [phone] Wilcox Encounters Encounter Location Date Provider Diagnosis [facility] [address] [place] [address] 03/02/2023 Fatuma Ellis Plan Of Treatment No Information Progress Notes * ROGETERRELLSimona TOMASOB: [birth year] (42 yo F)Acc No.[id number]:03/02/2023 Patient:?Kizzy Fraser :1980???Age:42 Y???Sex:Female Address:[address] [place] [address] * true * Date:? Generated for Printi ng/Faxing/eTransmitting on:?05/12/2024 01:02 PM EST
--- OUTSIDE RECORDS SUMMARY | 2024-05-12 13:03 | XMS_ITS ---
[facility] Address [address] [place] [address] Care Team Providers Care Elevator Attendant Name Role Phone Yariel Rose Primary Care Provider Unavailab Fatuma Mccord Unavailable [phone] Allergies Allergen (clinical drug ingredient) Drug/Non Drug Allergy documented on EMR Reaction Allergy Type Onset Date Status Seasonale Unknown Drug Allergy Active REASON FOR VISIT PCP - 2021, Heel pain Medications Medication SIG (Take, Route, Frequency, Duration) Notes Start Date End Date Status Botox 200 UNIT Injection for 90 Days Active Lisinopril 10 MG Oral for 90 Days Active EPINEPHrine 0.3 MG/0.3ML Injection for 2 Days PRN Active Pantoprazole Sodium 20 MG Oral for 90 Days Active Viberzi 100 MG Oral for 90 Days Active Citalopram Hydrobromide 10 MG Oral for 90 Days Active Social History Tobacco Use: Social History Observation Description Date Details (start date - stop date) Current Smoker NA - NA Tobacco Use/Smoking Question Answer Notes Are you a: current smoker How many cigarettes a day do you smoke? 6-10 Additional Findings: Tobacco User Heavy cigarett e smoker (20-39 cigs/day) Additional Findings: Tobacco Non-User Does not u se moist powdered tobacco Alcohol Screen Question Answer Notes Did you have a drink contain ing alcohol in the past year? Yes How often did you have a dri nk containing alcohol in the past year? 4 or more times a week (4 points) Points 4 Interpretation Positive Tobacco use other than smoking: Question Answer Notes Are you an other tobacco user? No Vital Signs Height 5'2 in 03/02/2023 Weight 155 lbs 03/02/2023 BMI 28.35 kg/m2 03/02/2023 Encounters Encounter Location Date Provider Diagnosis [facility] [address] [place] [address] 03/02/2023 Fatuma Ellis Plantar fasciitis, bilateral M72.2 ; Calcaneal spur of left foot M77.32 and Calcaneal spur of right foot M77.31 Assessments Encounter Date Diagnosis (ICD Code) Assessment Notes Treatment Notes Treatment Clinical Notes 03/02/2023 Plantar fasciitis, bilateral (ICD-10 - M72.2) Patient Educated with: HEEL CORD STRETCHES.pdf (HEEL CORD STRETCHES.pdf) Patient Educated with: RICE THERAPY.pdf (RICE THERAPY.pdf) 03/02/2023 Calcaneal spur of left foot (ICD-10 - M77.32) 03/02/2023 Calcaneal spur of right foot (ICD-10 - M77.31) Plan Of Treatment Treatment Notes Assessment Notes Plantar fasciitis, bilateral Patient Edu cated with: HEEL CORD STRETCHES.pdf (HEEL CORD STRETCHES.pdf) Patient Educated with: RICE THERAPY.pdf (RICE THERAPY.pdf) Next Appt Details Follow Up: prn, Reason: Progress Notes * RICKIE HermesDarinOB: [birth year] (42 yo F)Acc No.[id number]:03/02/2023 Progress Notes Patient:?RogeEfra Kizzy Provider:?Fatuma Ellis DPM :1980???Age:42 Y???Sex:Female D ate:03/02/2023 Address:[address] [place], [place] [id number] Pcp:Yariel Rose Subjective: * Chief Complaints: * ???PCP - 2021Heel pain * HPI: ???Heel pain:?Nature:?tenderness, sharp pain, stiffness.?Location:?Proximal plantar aspect of Heel , B/L , RIGHT greater than Left.?Duration:?September?.?Onset/Cause:?shoe gear, vacation in [place].?Course:?worse.?Aggrevated:?standing, walking, walking first thing in the morning/after rest.?Treatments:?rest , change in shoes-Hokas, however presents in old navy flip flops today, Pre-max innersoles, AFO-nightsplint, corticosteriod injection, x [address] Wilcox ?.? * ROS:?General/Constitutional:?Nausea?denies.?Vomiting?denies.?Hunger Thirst?denies.?Loss appetite?denies.?Chills?denies.?Fatigue?denies.?Fever?denies.?Night Sweats?denies.?Unexplained weight loss?denies.?Unexplained weight gain?denies.?HEENTM:?Dentures?denies.?Dizziness?denies.?Glasses/contacts?denies.?Retinopathy?de nies.?Blurred/double vision?denies.?TMJ?denies.?Discharge/drainage?denies.?Implants?denies.?Sore throat?denies.?Dental implants?denies.?Hard of hearing ?denies.?Difficulty chewing/swallowing/speaking?denies.?Nose bleeds?denies.?Sore mouth?denies.?Respiratory:?On Oxygen?denies.?Pneumonia/pleurisy?denies.?Bronchitis?denies.?Emphysema?denies.?C oughing?denies.?Cough blood?denies.?Shortness of breath?denies.?Wheezing?denies.?Cardiovascular:?Pacemaker?denies.?MVP?denies.?WPW?denies.?CHF?denies.?Heart attack?denies.?Septal defect?denies.?Rapid beat?denies.?Chest pain ?denies.?Atrial Fib.?denies.?Murmur/Palpitations?denies.?Gastrointestinal:?Hemorrhoids?denies.?Stomach/Abdominal pain?denies.?Dark blood stool?denies.?Irritable bowel ?admits.?Constipation?denies.?Diarrhea?admits.?Hematology:?Swelling?denies.?Clots?denies.?Varicose Veins?denies.?Bruising?denies.?Bleeding problem?denies.?Genitourinary:?Blood urine?denies.?Frequent/Painfu/urination/bladder control?denies.?Kidney stones?denies.?Infection (UTI)?denies.?Nephropathy?denies.?sex trans dis (STD)?denies.?Prostate?denies.?Musculoskeletal:?Hammertoes?denies.?Bunions?denies.?Back Pain?denies.?Muscle Cramps/ Resting?denies.?Muscle cramps / walking?denies.?Generalized aches and pains?denies.?Weakness?denies.?Integ.:?Daley?denies.?Scars?denies.?Corns/calluses?denies.?Ingrown nails?denies.?Painful nails?denies.?Open Sores?denies.?Rashes?denies.?Neurologic:?Difficulty sleeping?denies.?Brain disorder?denies.?Numbness?denies.?Balance trouble?admits.?Confusion?denies.?Fainting/blackouts?denies.?Tingling?denies.?Tr emors?denies.? * Medical History:? * Surgical History:?laproscopy , complications Atalectisis 2002 * Hospitalization/Major Diagno stic Procedure:?Denies Past Hospitalization * Family History:?Mother: dece ased, foot problems, diagnosed with Other malignant neoplasm of unspecified site.?Father: alive, heart attack, diagnosed with Unspecified cerebral artery occlusion with cerebral infarction, Unspecified essential hypertension.? * Social History:?Tobacco Use:?Tobacco Use/Smoking?Are you a:?current smoker ?How many cigarettes a day do you smoke??6-10 ?Additional Findings: Tobacco User?Heavy cigarette smoker (20-39 cigs/day) ?Additional Findings: Tobacco Non-User?Does not use moist powdered tobacco ?Tobacco use other than smoking?Are you an other tobacco user??No ???Drugs/Alcohol:?Drugs?Have you used drugs other than those for medical reasons in the past 12 months??No ?Alcohol Screen?Did you have a drink containing alcohol in the past year??Yes ?How often did you have a drink containing alcohol in the past year??4 or more times a week (4 points) ?Points?4 ?Interpretation?Positive ???Miscellaneous:?Caffeine: yes, 3-5 cups per day. ?Children: yes, 1. ?Exercise: yes, gym. ?Marital status: single. 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 * Medications:?TakingCitalopra m Hydrobromide 10 MG Tablet Oral Lisinopril 10 MG Tablet Oral Botox 200 UNIT Solution Reconstituted Injection Pantoprazole Sodium 20 MG Tablet Delayed Release Oral EPINEPHrine 0.3 MG/0.3ML Solution Auto-injector Injection , Notes: PRNViberzi 100 MG Tablet Oral Medication List reviewed and reconciled with the patientTaking Citalopram Hydrobromide 10 MG Tablet Oral Taking Lisinopril 10 MG Tablet Oral Taking Botox 200 UNIT Solution Reconstituted Injection Taking Pantoprazole Sodium 20 MG Tablet Delayed Release Oral Taking EPINEPHrine 0.3 MG/0.3ML Solution Auto-injector Injection , Notes: PRNTaking Viberzi 100 MG Tablet Oral Medication List reviewed and reconciled with the patient * Allergies:?Seasonale: Allerg yyes[Allergies Verified] Objective: * Vitals:?Ht: 5'2 , Wt:155, BM I:28.35, Shoe size: 5, Ht-cm: 157.48 cm, Wt-k.31 kg. * Examination: ???General Examination: ?GENERAL APPEARANCE:?Reveals a pleasant, alert, well-nourished, well- developed, well hydrated individual, who demonstrates proper attention to hygiene/body habitus, and is in no acute distress, Pt serves as own?historian for office visit today.?ORIENTED:?person, place, and time.?Neurological: ?SENSORY:?Neurological exam reveals intact sensorium, pain sensation normal, vibration sensation intact, pinprick sensation is normal in the lower extremities, Pt denies, anesthesia, burning, paresthesia, tingling, B/L.?TINEL'S COMPRESSION:?Negative tarsal tunnel, jody pedis, and medial calcaneal nerves.?DEEP TENDON REFLEXES:?Achilles, 2/4, B/L.?Vascular: ?DP PULSES:?3/4, B/L.?PT PULSES:?3/4, B/L.?CAPILLARY FILL TIME:?immediate, all digits, B/L.?SKIN TEMPERTURE GRADIENT OF THE LOWER EXTERMITIES:?warm to cool, proximal to distal, B/L.?HAIR GROWTH/TEXTURE/ELASTICITY/TURGOR:?normal, B/L.?PIGMENTATION:?normal, B/L.?EDEMA:?absent, B/L.?Dermatologic: ?SKIN FINDINGS:?Skin exam reveals normal texture, elasticity, and turgor. There are no masses. The interspaces are clear.?Orthopedic: ?MUSCLE STRENGTH:?5/5 all groups in a symmetrical fashion , B/L.?FOOT MORPHOLOGY:? Pes Planus structure, Decreased Ankle joint dorsiflexion ROM, knee extended.?Heel Pain: ?INSPECTION REVEALS:?Pain on Palpation to Plantar Fascia med. and central bands, intrinsic musc., infra-calcaneal bursa, and med calc tubercle, B/L, No pain: posterior/superior heel, achilles bursa/tendon, sinus tarsi, peroneals, or with lateral heel compression; no limited STJ ROM, calor, or ecchymosis.?X-Rays: ?Views:?Pt showed pictures on her phone of B/L Lat xrays she had taken previously.?Findings:?normal bone and soft tissue density consistent for patients age and sex, navicular/cuneiform plantar subluxation with anterior cyma line, positive infra-calcaneal exostosis, no coalitions identified.?Fracture:?Negative fractures identified.? Assessment: * Assessment: 1.?Calcaneal spur of left fo ot - M77.32?2.?Plantar fasciitis, bilateral - M72.2 (Primary), Acute problem, Complicated w/ Multiple Tx Options(4)?3.?Calcaneal spur of right foot - M77.31? Plan: * Treatment: * Procedure Codes:? * Preventive Medicine:? ??Counseling:?Discussion:?-04: Office or other outpatient visit for the evaluation and management of a new patient, which required a medically appropriate history and/or examination and MODERATE level of DECISION MAKING for: 1 OR MORE CHRONIC PROBLEM(S) THATS WORSENING, 2 STABLE CHRONIC PROBLEMS, A NEWLY DIAGNOSED PROBLEM WITH UNCERTAIN PROGNOSIS, AN ACUTE COMPLICATED INJURY WITH MULTIPLE TREATMENT OPTIONS, OR AN ACUTE PROBLEM WITH ACCOMPANYING SYSTEMIC SYMPTOMS, THAT POSE(S) A MODERATE RISK OF MORBIDITY. THIS CONDITION MAY ALSO INCLUDE RX DRUG MANAGEMENT, OR A DECISON FOR MINOR SURGERY. The visit on the day of the encounter encompassed interpreting the data and educating the patient as to the nature of their condition, treatment options available according to their individual PMH, meds, allergies, and overall health/living conditions, as well as any potential risks or complications that may occur from a failure to adhere to, and participate in, the recommended course of therapy. The discussion included a complete verbal, and/or written explanation of the examination results, any x-rays taken, the proposed diagnosis, and outline of the treatment plan. A schedule for future care needs was also explained. The patient verbalized an understanding of the instructions at this time and agreed to be an active participant in their treatment. If the patient should think of any questions or concerns after the visit, I have encouraged the patient to call the office.?Heel pain:?FASCIITIS: I explained to the patient the possible etiologies of Plantar Fasciitis including foot type/shoegear/activity level/exercise routine and the risks/benefits of all the different treatment options for heel pain including: No treatment at all, Rest, Ice, NSAIDs(only if well tolerated after meals), New/supportive Shoegear, Strappings and Tapings, Stretching exercises, Deep Tissue Massage, Heel cups/cushions, Arch support/shoe inserts, Custom orthoses, Topical analgesics including Aspercream/Voltaren gel, Night splint AFO for am stiffness, Cortisone injection therapy, Cast boot with crutches/cane/or walker for assisted ambulation, Physical Therapy, EPAT/ESWT, Interfil injection therapy, as well as surgical [place]/Endoscopic Fasciitomy surgical procedures if needed. Recommendations were made to limit barefoot walking, eliminate wearing nonsupportive shoegear (i.e. flip-flops or sandals, or a shoe with an easily bendable, foldable, or twistable sole) and wear shoegear with a good solid sole, a supportive arch, and plenty of room for an insert/orthotic if necessary. If wearing sandals was required by the patient, we recommended orthopedic sandals such as Orthoheel or Birkenstock even while in the home. If the patient wore heels in the past, we recommended they continue, but eliminate the use of flats. The advantages and disadvantages of each option were discussed and the patients questions re: types of shoegear, custom vs prefabricated inserts, activity level, PO vs Topical medications (and their respective potential complications/drug interactions/side effects), and consistency in home treatment regimens for optimal success were answered to their satisfaction. Literature detailing plantar fasciitis and the various treatment options were dispensed and reviewed , EPAT brochure is dispensed and discussed.?Orthotics:?I explained to the patient the benefits of OT use. I explained that orthoses are medically necessary to decrease the foot pain through proper mechanical control, support of their foot , decrease stretch/strain on the plantar fascia.?P.R.I.C.E.:?The patient was counseled on the use of P.R.I.C.E. and NSAIDS (if well tolerated) to aid in the recovery from their painful condition.?Physical Therapy:?Discussed the potential short and senior living benefits of physical therapy including pain relief, improved function for activity of daily life, return to exercise, increased quality of life. We discussed the usual/customary PT treatment schedule of 2-3 times per week for 4 weeks to as much as 12 weeks depending on insurance approval/coverage. We discussed various PT treatment modalities including, but not limited to, gate training, muscular stabilization, stretching, deep tissue therapeutic massage, ultrasound, TENS, iontophoresis, fluidotherapy, laser therapy, hydrotherapy, contrast ice/heat bath, and passive as well as active ROM exercises. Questions re: PT including visit amounts, rates of success, and goals were answered to the patient's satisfaction. The patient verbally confirmed the medical necessity and use of PT therapy treatment for their MSK condition, Pt defers on therapy at this time.?Shoe Gear Counseling:?The patient and I reviewed the types of shoes they should be wearing. My recommendation included obtaining a well-fitted shoe with a good supportive, non-foldable nor twistable sole, plenty of toe/room for the forefoot, and proper arch support. Based on todays examination, I recommended the patient look for new shoes, by having their feet professionally measured. We discussed that generally the best time of the day for a shoe fitting is the afternoon. Different shoes types and brands to best match the patients occupation and vocation were discussed. Specific brand selection will be up to the patient, their individual foot condition/deformities, and fit. The patient and I reviewed the standard new shoe break in period by wearing them for a few hours a day while checking for redness or sores as wear time is increased. The patient verbally confirmed to understanding the information discussed.?Stretching Exercises:?Stretching and deep tissue massage exercises for the patients injury/diagnosis were discussed and demonstrated, handouts were dispensed.? * Follow Up:?prn * Images: * Sign off status: Completed true * Provider:?Fatuma Ellis, DPM Date:?05/2023 Generated for Emily wang/Leny/Rosales on:?05/12/2024 01:02 PM EST History and Physical Notes * HPI (History of Present Illness) Category Sub-Category Detail Notes Heel pain Duration: September Nature: tenderness, sharp pa in, stiffness Location: Proximal plantar asp ect of Heel , B/L , RIGHT greater than Left Onset/Cause: shoe gear, vacation in [place] Aggravated: standing, walking, w alking first thing in the morning/after rest Course: worse Treatments: rest , change in yonathan es-Hokas, however presents in old navy flip flops today, Pre-max innersoles, AFO-nightsplint, corticosteriod injection, x [address] Wilcox Examination Category Sub-Category Detail Notes Heel Pain INSPECTION REVEALS: Pain on Palp ation to Plantar Fascia med. and central bands, intrinsic musc., infra-calcaneal bursa, and med calc tubercle, B/L, No pain: posterior/superior heel, achilles bursa/tendon, sinus tarsi, peroneals, or with lateral heel compression; no limited STJ ROM, calor, or ecchymosis Neurological SENSORY: Neurological exa m reveals intact sensorium, pain sensation normal, vibration sensation intact, pinprick sensation is normal in the lower extremities, Pt denies, anesthesia, burning, paresthesia, tingling, B/L TINEL'S COMPRESSION: Negative tarsal brian masood, jody pedis, and medial calcaneal nerves DEEP TENDON REFLEXES: Achilles, 2/4, B/L Dermatologic SKIN FINDINGS: Skin exam reveal s normal texture, elasticity, and turgor. There are no masses. The interspaces are clear Orthopedic FOOT MORPHOLOGY: Pes Planus stru cture, Decreased Ankle joint dorsiflexion ROM, knee extended MUSCLE STRENGTH: 5/5 all groups in a symmetrical fashion , B/L General Examination GENERAL APPEARANCE: Reveals a pleasant, alert, well- nourished, well-developed, well hydrated individual, who demonstrates proper attention to hygiene/body habitus, and is in no acute distress, Pt serves as own historian for office visit today ORIENTED: person, place, and t abisai Vascular DP PULSES(B): 3, B/L PT PULSES(B): 3/4, B/L CAPILLARY FILL TIME: immediate, all digi ts, B/L TEMPERTURE GRADIENT(C): warm to cool, pr oximal to distal, B/L TROPHIC CONDITION-TEXTURE/ELASTICITY/TURGOR/HAIR GROWTH(B): normal, B/L EDEMA(C): absent, B/L PIGMENTATION: normal, B/L X-Rays - IMAGING REPORT Findings: normal b one and soft tissue density consistent for patients age and sex, navicular/cuneiform plantar subluxation with anterior cyma line, positive infra-calcaneal exostosis, no coalitions identified Fracture: Negative fractures i dentified Views: Pt showed pictures o n her phone of B/L Lat xrays she had taken previously
--- OUTSIDE RECORDS SUMMARY | 2024-05-12 13:03 | XMS_ITS | Patient Health Record ---
Author Organization [facility] Address [address] [place] [address] Care Team Providers Care Compressor Operator Portable Name Role Phone Yariel Rose Primary Care Provider Unavailab Fatuma Mccord Unavailable [phone] Allergies Allergen (clinical drug ingredient) Drug/Non Drug Allergy documented on EMR Reaction Allergy Type Onset Date Status Seasonale Unknown Drug Allergy Active Reason For Referral No Information Medications Medication SIG (Take, Route, Frequency, Duration) Notes Start Date End Date Status Botox 200 UNIT Injection for 90 Days Active Lisinopril 10 MG Oral for 90 Days Active Citalopram Hydrobromide 10 MG Oral for 90 Days Active EPINEPHrine 0.3 MG/0.3ML Injection for 2 Days PRN Active Pantoprazole Sodium 20 MG Oral for 90 Days Active Viberzi 100 MG Oral for 90 Days Active Social History Tobacco Use: Social History Observation Description Date Details (start date - stop date) Current Smoker NA - NA Tobacco Use/Smoking Question Answer Notes Are you a: current smoker Additional Findings: Tobacco User Heavy cigarett e smoker (20-39 cigs/day) Additional Findings: Tobacco Non-User Does not u se moist powdered tobacco Alcohol Screen Question Answer Notes Did you have a drink containing alcohol in the p ast year? Yes Points 0 Interpretation Negative Tobacco use other than smoking: Question Answer Notes Are you an other tobacco user? No Plan Of Treatment No Information Insurance Providers Payer Name Payer Address Payer Phone Subscriber Number Group Number Insured Name Patient Relationship to Insured Coverage Start Date Coverage End Date Blue Benefits [address] [address] [place] [address] [id number] [facility] hardeep Hermeschristina Self - patient is the insured Medical (General) History Medical History History ICD Code Anxiety Depression Headaches/Migraines High blood pressure Reflux ( GERD) Chicken pox Vericose Veins Surgical History Surgery Date(Month/Year) laproscopy, complications Atalectisis 07 09
== END 2024-05-08 10:35 | disposition home or self-care (01) ==
LOC: HO.HOS 10:33
PROVIDERS: PCP Physician Assistant; Visit Provider Orthopaedic Surgery
DX: M23.92 Unspecified internal derangement of left knee (principal)
CPT/HCPCS: 99213

== ENCOUNTER 2024-05-10 15:14 | Outpatient (REF) | payer OTHER, SELFPAY ==
--- NOTE | ~2024-05-10 | MR_ITS ---
EXAMINATION: MR KNEE WITHOUT CONTRAST, LEFT CLINICAL INFORMATION: Left knee pain and instability. Internal derangement. COMPARISON: Most recent left knee MRI dated 03/19/2023. TECHNIQUE: MRI of the knee without contrast was performed using routine sequences on a high-field scanner. FINDINGS: MENISCI: Medial Meniscus: Intact. Lateral Meniscus: Intact. LIGAMENTS: Cruciate: Intact. Collateral: Intact. EXTENSOR MECHANISM: Superior patellar enthesophytes. Minimal distal quadriceps tendinosis. Intact patellar tendon. Normal patellofemoral alignment. TT-TG distance within normal limits. No patella nora. Minimal edema within the suprapatellar fat pad which is similar when compared to the prior examination and could represent minimal fat pad impingement. Subcutaneous edema ventral to the patellar tendon which is increased when compared to the prior examination and could represent early prepatellar bursitis in the appropriate clinical setting. No organized fluid collection. ARTICULAR CARTILAGE/BONE: Patellofemoral Compartment: Lateral patellar facet articular cartilage signal heterogeneity with tiny marginal osteophytes, slightly progressed when compared to the prior examination. Medial Compartment: Intact articular cartilage. Lateral Compartment: Intact articular cartilage. JOINT FLUID AND BURSAE: Trace joint effusion. MR/MR knee LT wo con IMPRESSION: 1. No acute meniscal or ligamentous injury. 2. Minimal distal quadriceps tendinosis with superior patellar enthesophytes. Minimal edema within the suprapatellar fat pad which could represent minimal fat pad impingement. Normal patellofemoral alignment. 3. Minimal patellofemoral arthrosis, slightly progressed when compared to the prior examination. Trace joint effusion. 4. Subcutaneous edema ventral to the patellar tendon which is increased when compared to the prior examination and could represent early prepatellar bursitis in the appropriate clinical setting. Electronically signed by: Yovany Cooper MD 05/11/2024 11:33 AM [facility] Workstation: [id number]
== END 2024-05-10 15:15 | disposition home or self-care (01) ==
LOC: HO.MRI 15:14
PROVIDERS: PCP Physician Assistant; Visit Provider Orthopaedic Surgery
DX: M23.92 Unspecified internal derangement of left knee (principal)
CPT/HCPCS: 73721

== ENCOUNTER 2024-05-11 13:57 | Outpatient (AMB) | payer OTHER, SELFPAY ==
--- NOTE | 2024-05-11 13:59 | A.OFFVIS_ITS ---
Vital Signs 05/11/24 14:00 Height 5 ft 2 in Weight 161 lb BMI 29.4 Intake Visit Reasons: OV- Left Knee Pain Intake Note: Kizzy is a 44 year old female who presents today for an MRI review of her left knee. While doing squats she felt a pop in the knee and has pain/instability ever since. She utilizes a brace which helps with ambulation but continues to have pain. Allergies cat dander Allergy (Verified 05/11/24 14:03) Unknown seasonal Allergy (Unknown, Uncoded 05/11/24 14:03) Unknown HPI HPI OV- Left Knee Pain: Details: 44-year-old woman comes in for MRI review. She continues to have medial-sided left knee pain. The pain localizes just over the pes anserinus bursa. She had a injury recently in which there was some twisting but she denies locking. [facility] Medical History MCL sprain of left knee Tear of medial meniscus of left knee Enlarged lymph node Hypertension Surgical History History of laparoscopy Family History Mother History of leukemia History of basal cell carcinoma History of breast cancer, Onset Age: 58 Maternal Grandmother History of pancreatic cancer Maternal Grandmother History of breast cancer Father TIA (transient ischemic attack), Onset Age: 50 CAD (coronary artery disease) Social History (Updated 04/17/24 @ 09:19 by Yariel Rose PA-C) Household Members Other:: daughter Housing: House Alcohol intake: current Alcohol intake frequency: a few times a week Alcohol type: wine Patient Tobacco Use Status: Current someday Tobacco user Tobacco use type: Cigarette Cigarette Packs Per Day: 0.5 Cigarettes Per Day: 5 e-Cigarette/Vaping Use: Never Used Second Hand Smoke Exposure: Yes service: No Current occupational status: employed 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 Tenderness to palpation over the pes anserinus bursa. There is no varus or valgus instability and she has a stable Jared's. Negative Paul's. No joint line tenderness. Office Procedures Joint Inj/Aspir; Non-Pain Clin Joint Injection/Drain Details: Injected 1 mL of Decadron and 3 mL 1% lidocaine and 3 mL of 0.25% Marcaine. Site was prepped using aseptic technique. Patient tolerated the procedure well. Approach Used: anteromedial Shoulders, Hips, Knees, Knee Large Joint Injection : Right Knee Coding Procedure code (CPT) selection complete Results Reviewed Results Reviewed: I personally reviewed the MR images. IMPRESSION: 1. No acute meniscal or ligamentous injury. 2. Minimal distal quadriceps tendinosis with superior patellar enthesophytes. Minimal edema within the suprapatellar fat pad which could represent minimal fat pad impingement. Normal patellofemoral alignment. 3. Minimal patellofemoral arthrosis, slightly progressed when compared to the prior examination. Trace joint effusion. 4. Subcutaneous edema ventral to the patellar tendon which is increased when compared to the prior examination and could represent early prepatellar bursitis in the appropriate clinical setting. Assessment & Plan Assessment & Plan (1) Pes anserine bursitis: Code(s): M70.50 - Other bursitis of knee, unspecified knee Category: Medical Plan: This is a 44-year-old woman with a normal MRI and tenderness over the pes anserinus bursa with a mixed picture. I injected the bursa which did help her briefly. I recommend NSAIDs, icing compression and we will follow up as needed. No additional orthopedic intervention warranted at this time. Coding Level of Care Code Est Pt Level 3 (62756) Diagnoses Pes anserine bursitis M70.50 CPT Codes Shoulders, Hips, Knees, - Knee Large Joint Injection 87570: Right Knee ([id number])
[2024-05-11 14:00] VITALS: BMI 29.4
== END 2024-05-11 14:37 | disposition home or self-care (01) ==
PROVIDERS: PCP Physician Assistant; Visit Provider Orthopaedic Surgery
DX: M70.50 Other bursitis of knee, unspecified knee (principal)
CPT/HCPCS: 20610; 99213

== ENCOUNTER → 2024-05-11 13:57 | Outpatient (BNVA) | payer OTHER, SELFPAY | PROVIDERS: PCP Physician Assistant; Visit Provider Orthopaedic Surgery | DX: M70.52 Other bursitis of knee, left knee (principal) | CPT/HCPCS: 20610; J0665; J2003 ==

== ENCOUNTER 2024-08-31 10:42 | Outpatient (AMB) | payer OTHER, SELFPAY ==
--- NOTE | 2024-08-31 10:58 | MHC.OFFVIS ---
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 Doing well with no computerized mill mill recorder concerns. Regular monthly menses. Currently is not sexually active. She denies vaginal itching and irritation. STI screening offered; she declined. She tries to eat healthy and stays active with exercise. Family history of breast cancer. Mom's BRCA testing was inconclusive. Last pap smear 2021, negative. Mammogram: 2023. [facility] Medical History MCL sprain of left knee Tear of medial meniscus of left knee Enlarged lymph node Hypertension Surgical History History of laparoscopy Family History Mother History of leukemia History of basal cell carcinoma History of breast cancer, Onset Age: 58 Maternal Grandmother History of pancreatic cancer Maternal Grandmother History of breast cancer Father TIA (transient ischemic attack), Onset Age: 50 CAD (coronary artery disease) Social History Household Members Other:: daughter Housing: House Alcohol intake: current Alcohol intake frequency: a few times a week Alcohol type: wine Patient Tobacco Use Status: Current someday Tobacco user Tobacco use type: Cigarette Cigarette Packs Per Day: 0.5 Cigarettes Per Day: 5 e-Cigarette/Vaping Use: Never Used Second Hand Smoke Exposure: Yes service: No Current occupational status: employed 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[employer] Sexual orientation: Straight/Heterosexual Gender identity: Female Cognitive needs: No Hearing needs: No Vision needs: No Female Reproductive History Menstrual Age of Menarche: 11 Date of last menstrual period: 08/17/24 Total pregnancies: 2 Full term: 1 Number of Living Children: 1 Ectopics: 1 Date of last pap smear: 06/18/22 (neg pap and hpv) Date of Mammogram: 04/06/24 (Birad 1) Review of Systems Const All systems reviewed & are unremarkable except as noted in HPI and below Physical Exam Vital Signs: Last Vital Signs BP 120/76 08/31/24 10:59 BMI result Body Mass Index 28.0 Const General: cooperative, healthy appearing and no acute distress Orientation/consciousness: patient oriented x3 GI Inspection: Yes normal to inspection Palpation (GI): Soft to palpation and Other GI palpation findings present (Nontender) Rectal Exam - Female: visual inspection normal General: Yes bladder normal to palpation External Female Exam: normal appearance of the urethra Speculum Exam - Vagina: normal appearance of the vagina, normal palpation and normal vaginal discharge Speculum Exam - Cervix: normal appearance of the cervix and normal palpation Bimanual exam- vagina & uterus: normal bimanual exam, normal palpation, uterine size normal, bladder normal to palpation, normal palpation, uterine shape normal and non-tender Bimanual Exam- Adnexa, other: normal adnexae Neuro General: patient oriented x3 Assessment & Plan Assessment & Plan (1) Encounter for well woman exam with routine gynecological exam: Code(s): Z01.419 - Encounter for gynecological examination (general) (routine) without abnormal findings Category: Medical Plan Discussed: Current recommendations for pap smears per ASCCP guidelines. Breast awareness and periodic breast exams. Mammogram yearly. Maintain a healthy lifestyle including a well balanced diet and routine exercise. Use condoms for STI and prevention. Discuss BRCA testing offered referral, she declines. Menopause verses perimenopause. Menopause is definitive of 1 year of no menses or 12 months in succession. Report any abnormal uterine bleeding in example prolonged episodes, or short intervals less than 24 days. Colonoscopy >45, or at risk sooner. Encouraged tobacco cessation. Patient verbalizes understanding and agrees to the plan of care. She was given opportunity to ask questions and all questions were answered to the best of my ability. RTO in one year for annual computerized mill mill recorder examination. This note is constructed using voice recognition software. While every effort has been made to ensure accuracy, import/export administrator errors may have been included. Coding Level of Care Code Est Pt Prev Care 40-64y(79163) Diagnoses Encounter for well woman exam with routine gynecological exam Z01.419
[2024-08-31 10:59] VITALS: BP 120/76; BMI 28.0
== END 2024-08-31 12:49 | disposition home or self-care (01) ==
LOC: HO.HWS 10:43
PROVIDERS: PCP Physician Assistant; Visit Provider Advanced Practice Midwife
DX: Z01.419 Encounter for gynecological examination (general) (routine) without abnormal findings (principal)
CPT/HCPCS: 99396; 99459

== ENCOUNTER → 2024-08-31 10:42 | Outpatient (BNVA) | payer OTHER, SELFPAY | PROVIDERS: PCP Physician Assistant; Visit Provider Advanced Practice Midwife ==

== ENCOUNTER 2024-09-05 07:27 | Outpatient (REF) | payer OTHER, SELFPAY ==
[2024-09-05 10:24] LABS: Hematocrit 37.5 % (37.0-47.0); Hemoglobin 12.6 g/dl (12.0-16.0); Mean Corpuscular HGB Conc 33.6 g/dl (31.0-35.0); Mean Corpuscular Volume 92.1 fL (80.0-98.0); Mean Platelet Volume 9.4 fL (9.4-12.3); Platelet Count 286 X10*3/uL (160-400); Red Blood Count 4.07 X10*6/uL (4.20-5.50); Red Cell Distribution Width 14.6 % (11.0-16.0); White Blood Count 5.5 X10*3/uL (4.8-10.8)
[2024-09-05 10:43] LABS: Alanine Aminotransferase 16 U/L (0-31); Albumin Level 4.3 g/dL (3.5-5.0); Alkaline Phosphatase 60 U/L (39-117); Anion Gap 11 (12-20); Aspartate Amino Transferase 24 U/L (5-31); Bilirubin Total 0.4 mg/dL (0.0-1.0); Blood Urea Nitrogen 12 mg/dL (9-16); Calcium 8.7 mg/dL (8.4-10.2); Carbon Dioxide 25 mmol/L (22-29); Chloride 108 mmol/L (96-108); Cholesterol 188 mg/dL (<200); Estimated Glomerular Filt Rate > 60; Glucose Fasting 88 mg/dL (60-99); HDL Cholesterol 59 mg/dL (>40); LDL Cholesterol Calculated 96 mg/dL (<100); Potassium 3.9 mmol/L (3.3-5.1); Sodium 140 mmol/L (135-145); Triglycerides 165 mg/dL (<150)
[2024-09-05 10:47] LABS: Creatinine Urine 127.76 mg/dL; Microalbum/Creatinine Ratio Ur 9.3 ug/mg cr (<30)
== END 2024-09-05 07:28 | disposition home or self-care (01) ==
LOC: HO.10HDL 07:27
PROVIDERS: Visit Provider Physician Assistant
DX: I10 Essential (primary) hypertension (principal); E78.9 Disorder of lipoprotein metabolism, unspecified
CPT/HCPCS: 36415; 80053; 80061; 82043; 82570; 85027

== ENCOUNTER 2024-12-05 11:59 | Outpatient (AMB) | payer OTHER, SELFPAY ==
[2024-12-05 12:01] VITALS: BP 140/88; PULSE 94; TEMP 36.8; O2SAT 97; BMI 27.9
--- NOTE | 2024-12-05 12:01 | AM.OFFWIN_ITS ---
Intake Vital Signs 12/05/24 12:01 Height 5 ft 2 in Weight 152 lb 6 oz BMI 27.9 BP 140/88 H Blood Pressure Location Lt brachial Position Sitting Pulse 94 Pulse Source Pulse Oximeter Temp 98.2 F Temp Source Oral Pulse Oximetry (%) 97 Oxygen Delivery Method Room Air Intake Visit Reasons: EP cough Intake Note: Pt presents to the office today for c/o a cough that started 1.5 weeks ago. Patient Tobacco Use Status: Current someday Tobacco user Allergies cat dander Allergy (Verified 12/05/24 12:04) Unknown seasonal Allergy (Unknown, Uncoded 12/05/24 12:04) Unknown HPI HPI Comments History of Present Illness Details History of Present Illness 44 yo female presenting today for cough and congestion for the past week. She states that she started with congestion and allergies. She states that she has noticed that it is now in her chest. She states that she has been coughing up white phlegm. She states that she its mainly in her chest now. She states that she has post nasal drip. She states that she has been eating and drinking well. She states that she no sick contacts or recent travel. She admits that she smokes 5-6 cigarettes a day. She denies fever, chills, CP, SOB, abd pain, n/v/d, MCKENNA, or sore throat. Physical Exam General: Cooperative, healthy appearing, comfortable, no acute distress and well developed Head: Normal to inspection Ears: Hearing grossly normal bilaterally Nose: Normal external nose present. Moist mucosa noted. Face and sinus: Normal facial exam. No sinus tenderness noted. Neck: Normal visual inspection and Yes full ROM. No lymphadenopathy noted. Respiratory: Normal respiratory effort and able to speak in complete sentences. Clear to auscultation bilaterally. No w/r/r noted. Cardiovascular: Regular rate and rhythm. Normal S1 and S2 GI: Normal to inspection. Soft to palpation and nontender Skin: No rashes or lesions noted [facility] Medical History MCL sprain of left knee Tear of medial meniscus of left knee Enlarged lymph node Hypertension Surgical History History of laparoscopy Family History Mother History of leukemia History of basal cell carcinoma History of breast cancer, Onset Age: 58 Maternal Grandmother History of pancreatic cancer Maternal Grandmother History of breast cancer Father TIA (transient ischemic attack), Onset Age: 50 CAD (coronary artery disease) Social History Household Members Other:: daughter Housing: House Alcohol intake: current Alcohol intake frequency: a few times a week Alcohol type: wine Patient Tobacco Use Status: Current someday Tobacco user Tobacco use type: Cigarette Cigarette Packs Per Day: 0.5 Cigarettes Per Day: 5 e-Cigarette/Vaping Use: Never Used Second Hand Smoke Exposure: Yes service: No Current occupational status: employed 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[employer] Sexual orientation: Straight/Heterosexual Gender identity: Female Cognitive needs: No Hearing needs: No Vision needs: No Female Reproductive History Menstrual Age of Menarche: 11 Review of Systems Const All systems reviewed & are unremarkable except as noted in HPI and below Physical Exam Vital Signs: Last Vital Signs Temp 98.2 F 12/05/24 12:01 Pulse 94 12/05/24 12:01 BP 140/88 H 12/05/24 12:01 Pulse Ox 97 12/05/24 12:01 Oxygen Delivery Method Room Air 12/05/24 12:01 BMI result Body Mass Index 27.9 Assessment & Plan Assessment & Plan (1) URI with cough and congestion: Code(s): J06.9 - Acute upper respiratory infection, unspecified Plan Most likely URI vs allergies vs bronchitis Plan- -Rest and drink lots of fluids - Tylenol or Motrin as needed - Diet as tolerated. - Z-chelsy as directed - Tessalon perles as needed for cough - Continue with zyrtec and sudafed - follow with PCP as needed if no improvement Medications: New azithromycin For 250 mg dose pack: take 500 mg today (day 1), then 250 mg for 4 days (days 2-5) PO 6 tabs 0RF benzonatate 100 mg PO bid-tid PRN 21 caps 0RF Cough 7 days Coding Level of Care Code Est Pt Level 3 (41534) Diagnoses URI with cough and congestion J06.9
--- OUTSIDE RECORDS SUMMARY | 2024-12-05 13:41 | XMS_ITS | Data Portability ---
Author Organization [place] - [facility], Allergy Address [address] [place] [id number] Care Team Providers Care Whale Fisherman Name Role Phone EZ MURRAY Primary Care Provider Assessment Encounter Date Assessment Date Assessment LastModified by Organization Details LastModified Time 11/19/2023 11/19/2023 Patient has been doing well following 5 years of allergy drop therapy. She takes cetirizine daily and only needed 1 dose of pseudoephedrine when she was mowing the lawn recently. For the most part she is quite satisfied with the results. We discussed she has an asymptomatic septal deviation. We discussed tapering the allergy drops over the next 4 to 5 months and then discontinuing the drops. She will go to 4 drops daily for 1 month, then 3 drops daily for a month and eventually get to 1 drop daily and then she can go to every other day if there is anything left after the 1 month of 1 drop. [email or web address] Not available 11/19/2023 09:24:50 Plan of Treatment Reminders Order Date Submit Date Provider Last Modified By Organization Details Last Modified Time Details Appointments None record ed. Lab None record ed. Referral None record ed. Procedures None record ed. Surgeries None record ed. Imaging None record ed. Medication Orders None record ed. Patient TargetsNo targets recorded. Patient InstructionsNo instructions recorded. Reason for Referral None Reported. Problems Name Problem SNOMED Code Status Onset Date Resolution Date Notes Provider Name and Address Organization Details Recorded Time Tobacco user 742072013 Active 2017 Tobacco use; Note: Date Diagnosed: 03/31/2018 1:25 PM (Z72.0) Not Available [facility] 03:23:00 Posterior rhinorrhe a 86945071 Active 2016 Postnasal drip; Note: Date Diagnosed: 06/16/2017 11:28 AM (R09.82) Not Available [facility] 4 03:23:00 Gastroeso phageal reflux disease without esophagit is 407464650 Active 2016 Gastro-eso phageal reflux disease without esophagiti s; Note: Date Diagnosed: 06/16/2017 11:28 AM (K21.9) Not Available [facility] 4 03:23:00 Hypertrop hy of tongue papillae 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 Active 2016 Black hairy tongue; Note: Date Diagnosed: 06/16/2017 11:28 AM (K14.3) Not Available [facility] 4 03:23:00 Allergic rhinitis 58722041 Active 2018 Allergic Rhinitis; Note: Date Diagnosed: 10/27/2018 3:50 PM (477.9) Note: Date Diagnosed: 10/27/2018 3:50 PM (477.9) Allergic rhinitis: Due to other allergen; Note: Date Diagnosed: 10/05/2018 9:31 AM (477.8) Note: Date Diagnosed: 10/05/2018 9:31 AM (477.8) ; Start Date : 10/05/2018 Allergic rhinitis: Due to other allergen; Note: Date Diagnosed: 09/29/2018 5:22 PM (477.8) Note: Date Diagnosed: 09/29/2018 5:22 PM (477.8) ; Start Date : 09/29/2018 Allergic rhinitis: Due to other allergen; Note: Date Diagnosed: 09/15/2018 5:27 PM (477.8) Note: Date Diagnosed: 09/15/2018 5:27 PM (477.8) ; Start Date : 09/15/2018 Allergic rhinitis: Due to other allergen; Note: Date Diagnosed: 08/18/2018 5:21 PM (477.8) Note: Date Diagnosed: 08/18/2018 5:21 PM (477.8) ; Start Date : 08/18/2018 Allergic rhinitis: Due to other allergen; Note: Date Diagnosed: 06/30/2018 4:11 PM (477.8) Note: Date Diagnosed: 06/30/2018 4:11 PM (477.8) ; Start Date : 06/30/2018 Allergic rhinitis: Due to other allergen; Note: Date Diagnosed: 06/09/2018 5:22 PM (477.8) Note: Date Diagnosed: 06/09/2018 5:22 PM (477.8) ; Start Date : 06/09/2018 Allergic rhinitis: Due to other allergen; Note: Date Diagnosed: 05/26/2018 5:21 PM (477.8) Note: Date Diagnosed: 05/26/2018 5:21 PM (477.8) ; Start Date : 05/26/2018 Allergic rhinitis: Due to other allergen; Note: Date Diagnosed: 05/17/2018 9:46 AM (477.8) Note: Date Diagnosed: 05/17/2018 9:46 AM (477.8) ; Start Date : 05/17/2018 Allergic rhinitis: Due to other allergen; Note: Date Diagnosed: 04/28/2018 3:59 PM (477.8) Note: Date Diagnosed: 04/28/2018 3:59 PM (477.8) ; Start Date : 04/28/2018 Allergic rhinitis: Due to other allergen; Note: Date Diagnosed: 08/11/2017 11:06 AM (477.8) Note: Date Diagnosed: 08/11/2017 11:06 AM (477.8) ; Start Date : 08/11/2017 Other allergic rhinitis; Note: Date Diagnosed: 08/25/2017 10:51 AM (J30.89) Note: Date Diagnosed: 08/25/2017 10:51 AM (J30.89) ; Start Date : 08/25/2017 Not Available [facility] 4 01:28:23 Deviated nasal septum 649085592 Active 2023 PAGE RIVERA MD [address] [place] [address] KULWINDER cavazos, [address] , [place] - [facility] 4 09:23:44 Problem Notes None recorded. Procedures Surgical History Date Name Laterality Status Provider Name and Address Organization Details Recorded Time laparoscopy completed Sharmin Umana [place] - [facility] 11/19/2023 09:18:11 extraction of wisdom tooth completed Sharmin Umana [place] - [facility] 11/19/2023 09:18:20 Imaging Results None recorded. Procedure Notes None recorded. Medical Equipment None Reported. Allergies No known drug allergies Medications Name Sig Start Date Stop Date Status Note LastModified by Organization Details LastModified Time fluconazo le 100 mg tablet 08/11 completed Medicati on ID: [id number] D uration Value: 10 Reason: () Brand Name: fluconaz ole Send Method: E-Prescr ibed Sub s Allowed: subs OK Medic ationGen ericName : fluconaz ole Not Available Not Available Not Available clotrimaz ole 10 mg iman 08/11 completed Medicati on ID: [id number] D uration Value: 22 Reason: () Brand Name: clotrima zole Sen d Method: E-Prescr ibed Sub s Allowed: subs OK Speci al Instruct ion: USE 1 IMAN 4 TIMES A DAY Medi cationGe nericNam e: clotrima zole Not Available Not Available Not Available citalopra m 10 mg tablet TAKE 1 TABLET BY MOUTH EVERY DAY active Not Available Not Available No t Available meloxicam 15 mg tablet PLEASE SEE ATTACHED FOR DETAILED DIRECTIO NS 11/18 completed Not Available Not Available Not Available nystatin 500,000 unit tablet 08/11 completed Medicati on ID: [id number] D uration Value: 30 Reason: () Brand Name: nystatin Send Method: E-Prescr ibed Sub s Allowed: subs OK Medic ationGen ericName : nystatin Not Available Not Available Not Available butalbita l-acetami nophen-ca ffeine 50 mg-325 mg-40 mg tablet 03/18 completed Medicati on ID: [id number] D uration Value: 7 Reason: () Brand Name: butalbit al-aceta minophen -caff Se nd Method: E-Prescr ibed Sub s Allowed: subs OK Medic ationGen ericName : butalbit al-aceta minophen -caff Not Available Not Available Not Available pantopraz ole 20 mg tablet,de layed release TAKE 20 MG ORALLY DAILY active Not Available Not Available No t Available lisinopri l 10 mg tablet TAKE 1 TABLET BY MOUTH DAILY 11/18 completed Not Available Not Available Not Available epinephri ne 0.3 mg/0.3 mL injection , auto-inje ctor Inject 1 pen injector single dose as needed 2022 active Medicati on ID: [id number] D uration Value: 180 Brand Name: galdino cagle Send Method: E-Prescr ibed Sub s Allowed: subs OK Medic ationGen ericName : epinephr ine Not Available Not Available Not Available methylpre dnisolone 4 mg tablets in a dose pack TAKE 6 TABLETS ON DAY 1 DIRECTED ON PACKAGE AND DECREASE BY 1 TAB EACH DAY FOR A TOTAL OF 6 DAYS 11/18 completed Not Available Not Available Not Available norethind joey (contrace ptive) 0.35 mg tablet 09/27 completed Medicati on ID: [id number] R najma: () Brand Name: norethin drone (contrac eptive) Send Method: E-Prescr ibed Sub s Allowed: subs OK Medic ationGen ericName : norethin drone (contrac eptive) Not Available Not Available Not Available Botox 100 unit injection 11/18 completed Medicati on ID: [id number] B rand Name: Botox Se nd Method: E-Prescr ibed Sub s Allowed: subs OK Medic ationGen ericName : Botox Me dication ID: [id number] B rand Name: Botox Se nd Method: E-Prescr ibed Sub s Allowed: subs OK Medic ationGen ericName : Botox Not Available Not Available Not Available Vitamin D3 25 mcg (1,000 unit) capsule 2017 active Medicati on ID: [id number] B rand Name: Vitamin D3 Send Method: E-Prescr ibed Sub s Allowed: subs OK Medic ationGen ericName : Vitamin D3 Not Available Not Available Not Available Botox 200 unit injection 11/18 completed Not Available Not Available Not Available Vitals None Recorded Social History None recorded. Functional Status None recorded. Mental Status None recorded. Family History Nothing Reported. Medical History Condition Response Allergies/Hayfever Y Anemia Y Migraines Y Anxiety Y Depression Y Gynecological HistoryNo gynecological history recorded. Obstetrics History GPAL:G 0 P 0 0 0 0 Past Encounters Encounter ID Performer Location Encounter Start Date Encounter Closed Date Diagnosis/Indication Diagnosis SNOMED-CT Code Diagnosis ICD10 Code Diagnosis Note [id number] PAGE RIVERA MD [facility] [address] [place] [address] 11/19/2023 08:43:50 11/19/2023 09:37:58 Allergic rhinitis 56530816 J30.9 Deviated nasal septum 12 6300420 J34.2 Health Concerns Section Related Observation LastModified by Organization Detai ls LastModified Time None Recorded Concern Status LastModified by Organization Details LastModified Time None Recorded Advance Directives Directive None Recorded Payers Insurance Date Sequence Insurance Name Policy Number Policy Marquez Covered Member ID Marquez Member ID Guarantor Name 11/21/2023 1 [employer] OF [facility] [id number] Kizzy Kraus [id number] Kizzy Kraus Notes Date Note Type Note Provider Name and Address Organization Details Recorded Time 11/19/2023 text/html SLIT f/u--no sx PAGE SCHMIDT MD [address] [facility], [place], [address], [facility] - [facility] 11/19/2023 09:26:19 OBGyn Episode No OBEpisode recorded.
== END 2024-12-05 12:51 | disposition home or self-care (01) ==
PROVIDERS: PCP Physician Assistant; Visit Provider Physician Assistant Medical
DX: J06.9 Acute upper respiratory infection, unspecified (principal)

== ENCOUNTER → 2024-12-05 11:59 | Outpatient (BNVA) | payer OTHER, SELFPAY | PROVIDERS: PCP Physician Assistant; Visit Provider Physician Assistant Medical ==

== ENCOUNTER 2025-01-09 11:48 | Outpatient (REF) | payer OTHER, SELFPAY ==
--- OUTSIDE RECORDS SUMMARY | 2025-01-09 13:02 | XMS_ITS | Data Portability ---
Author Organization [place] - [facility], Allergy Address [address] [address] Care Team Providers Care Melter Loader Name Role Phone EZ MURRAY Primary Care Provider [phone] Assessment Encounter Date Assessment Date Assessment LastModified [...] after the 1 month of 1 drop. [email or web address] Not available 11/19/2023 09:24:50 Plan of Treatment [...] Name and Address Organization Details Recorded Time Posterior rhinorrhe a 99648133 Active 2016 Postnasal drip; Note: Date Diagnosed: 06/16/2017 11:28 AM (R09.82) Not Available [facility] 4 03:23:00 Gastroeso phageal reflux disease without esophagit is 317840648 Active 2016 Gastro-eso phageal reflux disease without esophagiti s; Note: Date Diagnosed: 06/16/2017 11:28 AM (K21.9) Not Available [facility] 4 03:23:00 Hypertrop hy of tongue papillae 1006447 Active 2016 Black hairy tongue; Note: Date Diagnosed: 06/16/2017 11:28 AM (K14.3) Not Available [facility] 4 03:23:00 Tobacco user 885530357 Active 2017 Tobacco use; Note: Date Diagnosed: 03/31/2018 1:25 PM (Z72.0) Not Available [facility] 4 03:23:00 Allergic rhinitis 16245036 Active 2018 Allergic Rhinitis; Note: Date Diagnosed: [...] ; Start Date : 08/25/2017 Not Available [facility] 4 01:28:23 Deviated nasal septum 428273860 Active 2023 PAGE RIVERA MD [address] [place] [address], [facility] KULWINDER cavazos, [address] , [place] - [facility] 4 09:23:44 Problem Notes None recorded. Procedures Surgical History Date Name Laterality Status Provider Name and Address Organization Details Recorded Time laparoscopy completed Sharmin Umana [place] - [facility] 11/19/2023 09:18:11 extraction of wisdom tooth completed Sharmin Umana [place] - [facility] 11/19/2023 09:18:20 Imaging Results None recorded. Procedure Notes None recorded. Medical Equipment None Reported. Allergies No known drug allergies Medications Name Sig Start Date Stop Date Status Note LastModified by Organization Details LastModified Time fluconazo le 100 mg tablet 08/11 completed Medicati on ID: [id number] D uration Value: 10 Reason: () Brand Name: fluconaz ole Send Method: E-Prescr ibed Sub s Allowed: subs OK Medic ationGen ericName : fluconaz ole Not Available Not Available Not Available clotrimaz ole 10 mg iman 08/11 completed Medicati on ID: [id number] D uration Value: 22 Reason: () Brand [...] unit tablet 08/11 completed Medicati on ID: [id number] D uration Value: 30 Reason: () Brand Name: nystatin Send Method: E-Prescr ibed Sub s Allowed: subs OK Medic ationGen ericName : nystatin Not Available Not Available Not Available butalbita l-acetami nophen-ca ffeine 50 mg-325 mg-40 mg tablet 03/18 completed Medicati on ID: [id number] D uration Value: 7 Reason: () Brand [...] as needed 2022 active Medicati on ID: [id number] D uration Value: 180 Brand Name: galdino cagle Send Method: E-Prescr ibed Sub s Allowed: subs OK Medic ationGen ericName : ann-marier tsering Not Available Not Available Not Available methylpre dnisolone 4 mg tablets in a dose pack TAKE 6 TABLETS ON DAY 1 DIRECTED ON PACKAGE AND DECREASE BY 1 TAB EACH DAY FOR A TOTAL OF 6 DAYS 11/18 completed Not Available Not Available Not Available norethind joey (contrace ptive) 0.35 mg tablet 09/27 completed Medicati on ID: [id number] R najma: () Brand Name: norethin drone (contrac eptive) Send Method: E-Prescr ibed Sub s Allowed: subs OK Medic ationGen ericName : norethin drone (contrac eptive) Not Available Not Available Not Available Botox 100 unit injection 11/18 completed Medicati on ID: [id number] B rand Name: Botox Se nd Method: E-Prescr ibed Sub s Allowed: subs OK Medic ationGen ericName : Botox Me dication ID: [id number] B rand Name: Botox Se nd Method: E-Prescr ibed Sub s Allowed: subs OK Medic ationGen ericName : Botox Not Available Not Available Not Available Vitamin D3 25 mcg (1,000 unit) capsule 2017 active Medicati on ID: [id number] B rand Name: Vitamin D3 Send Method: [...] Note [id number] PAGE RIVERA MD [facility] [address] [place] [address] 11/19/2023 08:43:50 11/19/2023 09:37:58 Allergic rhinitis 25255673 J30.9 Deviated nasal septum 12 7861320 J34.2 Health Concerns Section Related Observation LastModified by Organization Detai ls LastModified Time None Recorded Concern Status LastModified by Organization Details LastModified Time None Recorded Advance Directives Directive None Recorded Payers Insurance Date Sequence Insurance Name Policy Number Policy Marquez Covered Member ID Marquez Member ID Guarantor Name 11/21/2023 1 [employer] OF [facility] [id number] Kizzy Kraus [id number] Kizzy Kraus Notes Date Note Type Note Provider Name and Address Organization Details Recorded Time 11/19/2023 text/html SLIT f/u--no sx PAGE SCHMIDT MD [address] [place] [address], [place], [address], [facility] - [facility] 11/19/2023 09:26:19 OBGyn Episode No OBEpisode recorded.
--- OUTSIDE RECORDS SUMMARY | 2025-01-09 13:02 | XMS_ITS | Clinical Summary ---
Author Organization Formerly [facility] Address [address] [place], [place] [id number] Phone Care Team Providers Care Block Chopper Hand Name Role Phone Unavailable Primary Care Provider Unavailabl e Family History Medical History Relation Comments Cancer Maternal Aunt 2 Relation Status Comments Maternal Aunt 1 Maternal Aunt 2 Social History Tobacco Use Types Packs/Day Years Used Date Smoking Tobacco: Never Assessed Education Answer Date Recorded Are you interested in more education? Not on amanda e 10/16/2022 Are you concerned about learning? Not on file 10/16/2022 No 10/16/2022 No 10/16/2022 Digital Access Answer Date Recorded No 11/13/2022 No 11/13/2022 Reliable internet access at home? Not on file 11/13/2022 Device with a working camera? Not on file Comments Unknown Sex and Gender Information Value Date Recorded Sex Assigned at Not on file Legal Sex Female 9:23 PM EDT Gender Identity Not on file Sexual Orientation Not on file Last Filed Vital Signs Vital Sign Reading Time Taken Comments Blood Pressure 112/74 01/01/2014 2:08 AM EDT Pulse - - Temperature 37 C (98.6 F) 01/01/2014 2:08 AM EDT Respiratory Rate - - Oxygen Saturation - - Inhaled Oxygen Concentration - - Weight 61.7 kg (136 lb) 01/01/2014 2:08 AM EDT Height 156.8 cm (5' 1.75 ) 01/01/2014 2:08 AM ED T Body Mass Index 25.08 01/01/2014 2:08 AM EDT Plan of Treatment Health Maintenance Due Date Last Done Comments LIPID PANEL 1979 DEPRESSION SCREENING 1991 SMOKING Hx and SMOKELESS TOBACCO SCREENING 1992 HEPATITIS C SCREENING 1997 HIV ONE-TIME SCREENING (18-6 5 YEARS) 1997 PAP SMEAR 2000 MAMMOGRAM 2019 COVID-19 VACCINE (2 2023-2 5 season) 2024 06/27/2020 COLOGUARD 2024 COLONOSCOPY 2024 COLORECTAL CANCER SCREENING 2024 FIT TEST 2024 FOBT 2024 SIGMOIDOSCOPY 2024 VIRTUAL COLONOSCOPY 2024 Adult Td,Tdap Booster 08/04/2029 08/04/2019 , 11/21/2010 HEPATITIS A VACCINES Aged Out No long er eligible based on patient's age to complete this topic HIB VACCINES Aged Out No longer eligi ble based on patient's age to complete this topic MENINGOCOCCAL VACCINES (ACWY) Aged Out No longer eligible based on patient's age to complete this topic MENINGOCOCCAL VACCINES (B) Aged Out N o longer eligible based on patient's age to complete this topic PNEUMOCOCCAL VACCINES (0-49 years) Aged Out No longer eligible b ased on patient's age to complete this topic Medical Devices Not on file Additional Source Comments The information contained in this document represents components of the legal health record. It is not the complete legal health record.[facility]
== END 2025-01-09 11:49 | disposition home or self-care (01) ==
LOC: HO.HOSX 11:48
PROVIDERS: Visit Provider Physician Assistant
DX: Z13.9 Encounter for screening, unspecified (principal)

== ENCOUNTER 2025-01-09 12:20 | Outpatient (REF) | payer OTHER, SELFPAY ==
--- NOTE | ~2025-01-09 | XR_ITS ---
EXAMINATION: XR FOOT 3 OR MORE VIEWS LEFT HISTORY: M79.673 - Pain in unspecified foot COMPARISON: Comparison is made with the prior examination dated 12/16/2022. FINDINGS: Three views of the left foot are submitted. Osseous mineralization is normal. There is no fracture or dislocation. The joint spaces are preserved. There is a small calcaneal spur. The soft tissues are unremarkable. XR/XR foot LT min 3V IMPRESSION: Small plantar calcaneal spur. Otherwise unremarkable examination of the left foot. Electronically signed by: Gil Marcus MD 01/09/2025 12:39 PM EDT
== END 2025-01-09 12:21 | disposition home or self-care (01) ==
LOC: HO.XRAY 12:20
PROVIDERS: PCP Physician Assistant; Visit Provider Physician Assistant
DX: M79.672 Pain in left foot (principal)
CPT/HCPCS: 73630

== ENCOUNTER → 2025-01-09 12:23 | Outpatient (BNV) | payer OTHER, SELFPAY | PROVIDERS: PCP Physician Assistant; Visit Provider Radiology Diagnostic Radiology | DX: M77.32 Calcaneal spur, left foot (principal) | CPT/HCPCS: 73630 ==

== ENCOUNTER 2025-05-10 16:17 | Outpatient (REF) | payer OTHER, SELFPAY ==
--- NOTE | ~2025-05-10 | MM_ITS ---
EXAMINATION: MM SCREENING DIGITAL BREAST TOMOSYNTHESIS, BILATERAL CLINICAL INFORMATION: Screening. Asymptomatic. COMPARISON: Mammography: Comparison is made with available priors TECHNIQUE: Digital breast mammography with tomosynthesis is performed in both the craniocaudal and mediolateral oblique views along with computer-aided detection (CAD). FINDINGS: The breasts are heterogeneously dense, which may obscure small masses. Left axillary marker clip. There are no significant masses, abnormal calcifications, or other abnormalities. MM/MM tomosynthesis screening BI IMPRESSION: No mammographic evidence of malignancy. ASSESSMENT: BI-RADS Category 2: Benign RECOMMENDATION: Routine annual mammography screening. 1 year F/U This examination should not preclude the clinical evaluation of a suspicious palpable abnormality. This patient's information was entered into a reminder system with a target due date for their next mammogram. Electronically signed by: Fabiola Henriquez DO 05/11/2025 04:07 PM NICK
--- OUTSIDE RECORDS SUMMARY | 2025-05-10 20:57 | XMS_ITS | Data Portability ---
Author Organization [place] - [facility], Allergy Address [address] [address] Care Team Providers Care Law Researcher Name Role Phone EZ MURRAY Primary Care [...] Organization Details Recorded Time Posterior rhinorrhe a [id number] Active 2016 Postnasal drip; Note: Date Diagnosed: 06/16/2017 11:28 AM (R09.82) Not Available [facility] 4 03:23:00 Gastroeso phageal reflux disease without esophagit is 464630723 Active 2016 Gastro-eso phageal reflux disease without esophagiti s; Note: Date Diagnosed: 06/16/2017 11:28 AM (K21.9) Not Available [facility] 4 03:23:00 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; Note: Date Diagnosed: 06/16/2017 11:28 AM (K14.3) Not Available [facility] 4 03:23:00 Tobacco user 552166103 Active 2017 Tobacco use; Note: Date Diagnosed: 03/31/2018 1:25 PM (Z72.0) Not Available [facility] 4 03:23:00 Allergic rhinitis 61106615 Active 2018 Allergic Rhinitis; Note: Date Diagnosed: [...] ; Start Date : 08/25/2017 Not Available [facility] 4 01:28:23 Deviated nasal septum 828238831 Active 2023 PAGE RIVERA MD [address] [place] [address], [facility] KUL[place] cavazos, [id number] , [place] - [facility] 4 09:23:44 Problem Notes None recorded. Procedures Surgical History Date Name Laterality Status Provider Name and Address Organization Details Recorded Time laparoscopy completed Sharmin Umana [place] - [facility] 11/19/2023 09:18:11 extraction of wisdom tooth completed Sharmin Umana [place] - [facility] 11/19/2023 09:18:20 Imaging Results None recorded. Procedure Notes None recorded. Medical Equipment None Reported. Allergies No known drug allergies Medications Name Sig Start Date Stop Date Status Note LastModified by Organization Details LastModified Time fluconazo le 100 mg tablet 08/11 completed Medicati on ID: [id number] D uration Value: 10 Reason: () Brand Name: fluconaz ole Send Method: E-Prescr ibed Sub s Allowed: subs OK Medic ationGen ericName : fluconaz ole Not Available Not Available Not Available clotrimaz ole 10 mg iman 08/11 completed Medicati on ID: [id number] D uration Value: 22 Reason: () Brand [...] unit tablet 08/11 completed Medicati on ID: [id number] D uration Value: 30 Reason: () Brand Name: nystatin Send Method: E-Prescr ibed Sub s Allowed: subs OK Medic ationGen ericName : nystatin Not Available Not Available Not Available butalbita l-acetami nophen-ca ffeine 50 mg-325 mg-40 mg tablet 03/18 completed Medicati on ID: [id number] D uration Value: 7 Reason: () Brand [...] as needed 2022 active Medicati on ID: [id number] D uration Value: 180 Brand Name: galdino [...] mg tablet 09/27 completed Medicati on ID: [id number] R najma: () Brand Name: norethin drone (contrac eptive) Send Method: E-Prescr ibed Sub s Allowed: subs OK Medic ationGen ericName : norethin drone (contrac eptive) Not Available Not Available Not Available Botox 100 unit injection 11/18 completed Medicati on ID: [id number] B rand Name: Botox Se nd Method: E-Prescr ibed Sub s Allowed: subs OK Medic ationGen ericName : Botox Me dication ID: [id number] B rand Name: Botox Se nd Method: E-Prescr ibed Sub s Allowed: subs OK Medic ationGen ericName : Botox Not Available Not Available Not Available Vitamin D3 25 mcg (1,000 unit) capsule 2017 active Medicati on ID: [id number] B rand Name: Vitamin D3 Send Method: [...] Diagnosis SNOMED-CT Code Diagnosis ICD10 Code Diagnosis IMO Codes Diagnosis Note [id number] PAGE RIVERA MD [facility] [address] [place] [address] 11/19/2023 08:43:50 11/19/2023 09:37:58 Allergic rhinitis [id number] J30.9 Deviated nasal septum 12 7599634 J34.2 Health Concerns Section Related Observation LastModified by Organization Detai ls LastModified Time None Recorded Concern Status LastModified by Organization Details LastModified Time None Recorded Advance Directives Directive None Recorded Payers Insurance Date Sequence Insurance Name Policy Number Policy Marquez Covered Member ID Marquez Member ID Guarantor Name 11/21/2023 1 [employer] [facility] [id number] Kizzy Kraus [id number] Kizzy Kraus Notes Date Note Type Note Provider Name and Address Organization Details Recorded Time 11/19/2023 text/html SLIT f/u--no sx PAGE SCHMIDT MD [address] [place] [address], [place], [address], [facility] - [facility] 11/19/2023 09:26:19 OBGyn Episode No OBEpisode recorded.
--- OUTSIDE RECORDS SUMMARY | 2025-05-10 20:57 | XMS_ITS | Clinical Summary ---
Author Organization [facility] Address [address] [place], [place] [id number] Phone Care Team Providers Care Principal Cyber Engineer Name Role Phone Unavailable Primary Care Provider [...] HEPATITIS C SCREENING 1997 HIV ONE-TIME SCREENING (18-65 YEARS) 1997 PAP SMEAR 2000 MAMMOGRAM 2019 COLOGUARD 2024 COLONOSCOPY 2024 COLORECTAL CANCER SCREENING 2024 FIT TEST 2024 FOBT 2024 SIGMOIDOSCOPY 2024 VIRTUAL COLONOSCOPY 2024 INFLUENZA VACCINE (#1) 2025 0, 03/29/2019, 04/21/2018, Additional history exists COVID-19 VACCINE ( season) 2025 06/27/2020 Adult Td,Tdap Booster 08/04/2029 08/04/2019, 011 HEPATITIS A VACCINES Aged Out No long [...] (0-49 years) Aged Out No longer eligible based on patient's age to complete this topic Medical Devices Not on file Additional Source Comments The information contained in this document represents components of the legal health record. It is not the complete legal health record.[facility]
== END 2025-05-10 16:18 | disposition home or self-care (01) ==
LOC: HO.MAMMO 16:17
PROVIDERS: PCP Physician Assistant; Visit Provider Physician Assistant
DX: Z12.31 Encounter for screening mammogram for malignant neoplasm of breast (principal)
CPT/HCPCS: 77063; 77067

== ENCOUNTER → 2025-05-10 16:30 | Outpatient (BNV) | payer OTHER, SELFPAY | PROVIDERS: PCP Physician Assistant; Visit Provider Internal Medicine | DX: Z12.31 Encounter for screening mammogram for malignant neoplasm of breast (principal) | CPT/HCPCS: 77063; 77067 ==